=== PATIENT | female | born 1930 | race Caucasian/White ===

== ENCOUNTER → 2016-11-13 | Outpatient (CLI) | payer MEDICARE ==
[~2016-11-13] MED LIST: ASCO100083 PO; ASP325T PO; CALC-52 PO; CALC-69 PO; CHOL10003 PO; CYAN100021 IM; CYAN100053 IM; ESTR1TAB24 PO; ESTR1TAB50 PO; FLC1T PO; HYDR-3583 PO; INUL2TAB2 PO; LEVA1.25 IH; LISI1TAB10 PO; LOVA10TA PO; LSRT50T PO; MULT-608 PO; OMEG1CAP51 PO; OXC5T PO; OXYC10TA85 PO; PEG250PW PO; PHEN1SUP3 PR; POLY17PO23 PO; PROBIOTIC1 EACH PO; PROP65CA PO; SERT100T8 PO; SERT50TA PO; SLMFT1E INH; STR51SU12 PR; TETR15DR82 OU; [UNRECOGNIZED DRUG - CODE] PO
--- OUTSIDE RECORDS SUMMARY | 2016-11-13 12:34 | XMS REPORT | Continuity of Care Document ---
Author Author [facility] Organization [facility] Address Unknown Phone Unavailable Care Team Providers Care Overhead Worker Name Role Phone LIV STONE DO PCP Insurance Providers Payer Name Policy Number Subscriber Name Relationship Wps Medicare [id number] Farooq Rodrigez E 18 Self / Same As Patient Blue Cross Mcr Supp [id number] Farooq Rodrigez E 18 Self / Same As Patient Advance Directives Directive Response Recorded Date/Time Advance Directives Yes 11/30/14 4:15pm Health Care Power of Handstitching Machine Collar Feller Yes 11/30/14 4:15pm Organ Donor No 11/30/14 4:15pm Resuscitation Status Full Code 11/30/14 4:15pm Problems No known problems or medical conditions. Medications Medication Dose Route Sig Days/Qty Instructions Order Date Discontinued Date Status HCTZ/Lisinopril (Zestoretic) 1 Tab PO TWICE A DAY PRN BLOOD PRESSURE 02/02/10 Active Estradiol 1 Mg PO EVERY OTHER DAY 02/02/10 07/23/11 Discontinued Sertraline HCl 50 Mg PO DAILY 02/02/10 11/30/14 Discontinued Propoxyphene HCl (Darvon) 1 Each PO FOUR TIMES DAILY 02/02/10 Discontinued Calcium Citrate/Vitamin D3 2 Each PO DAILY 02/02/10 11/30/14 Discontinued Cholecalciferol 1,000 Unit PO DAILY 02/02/10 08/15/11 Discontinued Starch 1 Ea UT EVERY 6 HOURS PRN 02/02/10 09/15/11 Discontinued Aspirin 650 Mg PO TWICE A DAY 04/10/10 Active Cyanocobalamin (Vitamin B 12 Injecting) 1,000 Mcg IM MONTHLY Active Acetaminophen/Hydrocodone Bitart 1 - 2 Ea PO 4-6 hrs prn 04/22/1023/07 Discontinued Lovastatin (Mevacor) 10 Mg PO DAILY 07/23/11 11/30/14 Discontinued Sinclair-3 Fatty Acids/Fish Oil 1,000 Mg PO BEDTIME 07/23/11 Active Multivitamins 1 Tab PO DAILY 07/23/11 Active Lactobacillus Rhamnosus Gg 1 Tab PO DAILY 07/23/11 Active Inulin/Sorbitol 2 Tab PO DAILY PRN CONSTIPATION 07/23/11 Active Folic Acid 1 Mg PO DAILY 08/08/11 11/30/14 Discontinued Losartan Potassium 50 Mg PO DAILY 30 Days 08/08/11 08/15/11 Discontinued Oxycodone HCl (Oxycodone IR) 20 Mg PO EVERY 4HRS 08/08/11 11/30/14 Discontinued Polyethylene Glycol 1 Ea PO PRN 08/08/11 09/15/11 Discontinued Cholecalciferol 1,000 PO 1200 09/02/11 Active Losartan Potassium 50 Mg PO DAILY 09/02/11 11/27/11 Discontinued Starch 1 Ea UT TWICE A DAY PRN 09/15/11 11/30/14 Discontinued Salmeterol Xinafoate/Fluticasone 0 INH GIVE EVERY 12 HRS ON SCHEDULE 1 PUFF 09/15/11 11/30/14 Discontinued Levalbuterol Hcl 1.25 Mg IH TWICE A DAY 09/15/11 11/27/11 Discontinued Sertraline Hcl 50 Mg PO DAILY 11/30/14 Active Ascorbic Acid 1,000 Mg PO DAILY 11/30/14 Active Magnesium Oxide 500 Mg PO 1200 11/30/14 Active Oxycodone HCl 10 Mg PO TWICE A DAY PRN PAIN 11/30/14 Active Polyethylene Glycol 17 Gm PO 0700 11/30/14 Active Tetrahydrozoline Hcl 2 Drop OU TWICE A DAY PRN DRY EYES/ALLERGIES 10/15 Active Social History Social History Problem Response Recorded Date/Time Recreational Drug Use No 11/30/2014 4:25pm Recent Foreign Travel No 11/30/2014 4:25pm Recent Infectious Disease Exposure No 11/30/2014 4:25pm Hospitalization with Isolation Denies 12/01/2014 10:09pm Sexually Transmitted Disease No 11/30/2014 4:25pm Smoking Status Never a Smoker 11/30/2014 4:16pm Query Response Start Date Stop Date Smoking Status Never a Smoker Hospital Discharge Instructions Patient Instructions Physician Instructions New, Converted or Re-Newed RX: Other (No new Rxes) Goal/Follow Up Appt: Call Dr Stone's office on Thursday to obtain a [facility] appointment on 12/05/14 Return to The [facility] For: Fainting, chest pain Discharge Diet: No Restrictions Activity as Tolerated: Yes Care Plan Goal:: Call Dr Stone's office on Thursday to obtain a [facility] appointment , 12/05/14 Plan of Care Discharge Date 12/01/14 9:00pm Disposition 30 STILL A PATIENT Instructions/Education Provided Syncope (GEN) Prescriptions See Medications Section Functional Status Query Response Date Recorded Patient Orientation Normal For Age December 01, 2014 2:34pm Comprehension Ability Understands Concepts December 01, 2014 9:00am Allergies, Adverse Reactions, Alerts Allergen Type Severity Reaction Status Last Updated amlodipine besylate Allergy Unknown Active 09/15/11 Morphine Allergy Active 07/23/11 atorvastatin ([id number]) Allergy Active 04/10/10 egg ([id number]) Allergy NAUSEA Active 09/15/11 Immunizations Name Given Type Date of Pneumonia Vaccine 10/29/14 Historical Date of Influenza Vaccine 11/30/14 Historical Hepatitis A Yes Historical Hepatitis B Yes Historical Tetanus Booster (TDap) Unknown Historical Vital Signs Acute Vital Signs Vital Response Date/Time Temperature (Fahrenheit) 98.2 degrees F (97.6 - 99.5) Temperature (Calculated Celsius) 36.66338 degrees C (36.4 - 37.5) Temperature Source Tympanic Pulse Rate (adult) 65 bpm (60 - 90) Respiratory Rate 20 bpm (12 - 24) O2 Sat by Pulse Oximetry 92 % (88 - 100) Blood Pressure 157/72 mm Hg Pain Pain Intensity 0 Height (Feet) 5 feet Height (Inches) 7.00 inches Height (Calculated Centimeters) 170.855163 cm Weight (Pounds) 116 pounds Weight (Ounces) 5.0 oz Weight (Calculated Grams) 13129.715 gm Weight (Calculated Kilograms) 52.639034 kilograms Calculated BMI 18.01 Results Laboratory Results Test Name Result Units Flags Reference Collection Date/Time Result Date/ Time Comments White Blood Count 5.2 10^3/uL 4.3-11.0 12/01/2014 6:57am 12/01/2014 7: 13am Red Blood Count 3.89 10^6/uL L 4.35-5.85 12/01/2014 6:57am 12/01/2014 7: 13am Hemoglobin 12.2 G/DL 11.5-16.0 12/01/2014 6:57am 12/01/2014 7:13am Hematocrit 38 % 35-52 12/01/2014 6:57am 12/01/2014 7:13am Mean Corpuscular Volume 97 FL 80-99 12/01/2014 6:57am 12/01/2014 7: 13am Mean Corpuscular Hemoglobin 31 PG 25-34 12/01/2014 6:57am 12/01/2014 7: 13am Mean Corpuscular Hemoglobin Concent 32 G/DL 32-36 12/01/2014 6:57am 10/2014 7:13am Red Cell Distribution Width 14.3 % 10.0-14.5 12/01/2014 6:57am 2014 7:13am Platelet Count 169 10^3/uL 130-400 12/01/2014 6:57am 12/01/2014 7:13am Mean Platelet Volume 11.6 FL H 7.4-10.4 12/01/2014 6:57am 12/01/2014 7: 13am Neutrophils (%) (Auto) 54 % 42-75 12/01/2014 6:57am 12/01/2014 7:13am Lymphocytes (%) (Auto) 30 % 12-44 12/01/2014 6:57am 12/01/2014 7:13am Monocytes (%) (Auto) 13 % H 0-12 12/01/2014 6:57am 12/01/2014 7:13am Eosinophils (%) (Auto) 3 % 0-10 12/01/2014 6:57am 12/01/2014 7:13am Basophils (%) (Auto) 1 % 0-10 12/01/2014 6:57am 12/01/2014 7:13am Neutrophils # (Auto) 2.8 X 10^3 1.8-7.8 12/01/2014 6:57am 12/01/2014 7: 13am Lymphocytes # (Auto) 1.5 X 10^3 1.0-4.0 12/01/2014 6:57am 12/01/2014 7: 13am Monocytes # (Auto) 0.7 X 10^3 0.0-1.0 12/01/2014 6:57am 12/01/2014 7: 13am Eosinophils # (Auto) 0.2 10^3/uL 0.0-0.3 12/01/2014 6:57am 12/01/2014 7 :13am Basophils # (Auto) 0.0 10^3/uL 0.0-0.1 12/01/2014 6:57am 12/01/2014 7: 13am Urine Color YELLOW 11/30/2014 5:25pm 11/30/2014 8:33pm Urine Clarity CLEAR 11/30/2014 5:25pm 11/30/2014 8:33pm Urine pH 7 5-9 11/30/2014 5:25pm 11/30/2014 8:33pm Urine Specific [place] 1.010 * 1.016-1.022 11/30/2014 5:25pm 2014 8:33pm Urine Protein NEGATIVE NEGATIVE 11/30/2014 5:25pm 11/30/2014 8:33pm Urine Glucose (UA) NEGATIVE NEGATIVE 11/30/2014 5:25pm 11/30/2014 8: 33pm Urine RBC (Auto) NEGATIVE NEGATIVE 11/30/2014 5:25pm 11/30/2014 8: 33pm Urine Ketones NEGATIVE NEGATIVE 11/30/2014 5:25pm 11/30/2014 8:33pm Urine Nitrite NEGATIVE NEGATIVE 11/30/2014 5:25pm 11/30/2014 8:33pm Urine Bilirubin NEGATIVE NEGATIVE 11/30/2014 5:25pm 11/30/2014 8: 33pm Urine Urobilinogen NORMAL MG/DL NORMAL 11/30/2014 5:25pm 11/30/2014 8: 33pm Urine Leukocyte Esterase NEGATIVE NEGATIVE 11/30/2014 5:25pm 2014 8:33pm Urine RBC NONE /HPF 11/30/2014 5:25pm 11/30/2014 8:33pm Urine WBC NONE /HPF 11/30/2014 5:25pm 11/30/2014 8:33pm Urine Bacteria NEGATIVE /HPF 11/30/2014 5:25pm 11/30/2014 8:33pm Urine Squamous Epithelial Cells RARE /HPF 11/30/2014 5:25pm 2014 8:33pm Urine Crystals NONE /LPF 11/30/2014 5:25pm 11/30/2014 8:33pm Urine Casts NONE /LPF 11/30/2014 5:25pm 11/30/2014 8:33pm Urine Mucus NEGATIVE /LPF 11/30/2014 5:25pm 11/30/2014 8:33pm Urine Culture Indicated NO 11/30/2014 5:25pm 11/30/2014 8:33pm Sodium Level 145 MMOL/L 135-145 12/01/2014 6:57am 12/01/2014 7:27am Potassium Level 3.9 MMOL/L 3.6-5.0 12/01/2014 6:57am 12/01/2014 7:27am Chloride Level 108 MMOL/L H 98-107 12/01/2014 6:57am 12/01/2014 7:27am Carbon Dioxide Level 27 MMOL/L 21-32 12/01/2014 6:57am 12/01/2014 7: 27am Blood Urea Nitrogen 27 MG/DL H 7-18 12/01/2014 6:57am 12/01/2014 7:27am Creatinine 1.05 MG/DL 0.60-1.30 12/01/2014 6:57am 12/01/2014 7:27am BUN/Creatinine Ratio 26 12/01/2014 6:57am 12/01/2014 7:27am Estimat Glomerular Filtration Rate 50 12/01/2014 6:57am 12/01/2014 7:27am GFR INTERPRETIVE DATA UNITS FOR ESTIMATED GFR (eGFR): mL/min/1.73 M2 REFERENCE RANGE FOR ESTIMATED GFR (eGFR) eGFR NORMAL eGFR >60 MODERATELY DECREASED eGFR 30-59 SEVERLY DECREASED eGFR 15-29 KIDNEY FAILURE <15 (OR DIALYSIS) Glucose Level 96 MG/DL 70-105 12/01/2014 6:57am 12/01/2014 7:27am Calcium Level 10.2 MG/DL H 8.5-10.1 12/01/2014 6:57am 12/01/2014 7:27am Magnesium Level 2.1 MG/DL 1.8-2.4 11/30/2014 4:11pm 11/30/2014 5:00pm Total Bilirubin 0.7 MG/DL 0.1-1.0 12/01/2014 6:57am 12/01/2014 7:27am Alkaline Phosphatase 61 U/L 40-136 12/01/2014 6:57am 12/01/2014 7:27am Aspartate Amino Transf (AST/SGOT) 40 U/L H 5-34 12/01/2014 6:57am 2014 7:27am Alanine Aminotransferase (ALT/SGPT) 22 U/L 0-55 12/01/2014 6:57am 12/01 7:27am Total Creatine Kinase 398 U/L H 29-168 11/30/2014 4:11pm 11/30/2014 5: 28pm Creatine Kinase MB 7.3 NG/ML CH <6.6 11/30/2014 4:11pm 11/30/2014 5:00pm RESULTS CALLED TO [facility] AT 1700. RESULTS READ BACK: YES. Troponin I < 0.30 NG/ML <0.30 11/30/2014 4:11pm 11/30/2014 5:00pm Total Protein 6.5 G/DL 6.4-8.2 12/01/2014 6:57am 12/01/2014 7:27am Albumin 3.6 G/DL 3.2-4.5 12/01/2014 6:57am 12/01/2014 7:27am Procedures Procedure Status Date Provider(s) Tracing only of electrocardiogram completed 11/30/14 LIV STONE DO Encounters Encounter Location Date/Time Discharged Inpatient [facility] 11/30/14 2:50pm
--- NOTE | 2016-11-17 00:17 | ECHOCARDIOGRAPHY REPORT ---
PROCEDURE PHYSICIAN: COLBY CENTENO DATE OF PROCEDURE: 11/13/2016 TWO DIMENSIONAL ECHOCARDIOGRAM REPORT PRIMARY PHYSICIAN: OTHER PHYSICIAN: REFERRING PHYSICIAN: Dr. Nitza Keith ORDERING PHYSICIAN: INDICATION FOR THE PROCEDURE: Cardiac murmur. MEASUREMENTS DERIVED VALUES LV DIAMETER (LAX) NORMALS NORMALS Diastolic 4.4 (3.6-5.2) Eject. Fract. 60% (60%+/-6%) Systolic (2.3-3.9) Diastolic Vol. % Shortening (0.22-0.42) Systolic Vol. Aortic Root IVS THICKNESS Diastolic 1.1 (0.6-1.1) LVPW THICKNESS Diastolic 1.1 (0.6-1.1) LA DIAMETER Systolic 4.3 (2.1-3.7) FINDINGS: 1. Technical quality is good. 2. The left ventricle is normal in size with normal contractility. Systolic function appeared to be normal. Estimated ejection fraction 60%. Diastolic dysfunction is suggested by Doppler. 3. The left atrium is dilated. No clot or thrombus were seen within the left atrium. 4. The right atrium is prominent. Right ventricle is normal in size. No clot or thrombus were seen within the right side. 5. Mitral valve is normal in morphology with mild mitral regurgitation noted by color Doppler flow. No mitral valve prolapse. No mitral valve stenosis. 6. Aortic valve is trileaflet with normal opening and closing pattern. No significant aortic stenosis or regurgitation was seen. 7. Tricuspid valve is normal in morphology with moderate tricuspid regurgitation noted by color Doppler flow. Doppler across tricuspid valve estimated pulmonary artery pressure 37+ right atrial pressure. 8. Pulmonic valve is functioning normally. 9. No pericardial effusion. IN CONCLUSION: 1. Normal left ventricular size and systolic function. Estimated ejection fraction 60%. Diastolic dysfunction is suggested by Doppler. 2. Dilated left atrium. 3. Dilated right atrium with prominent right heart chambers with mild to moderate pulmonary hypertension, estimated pulmonary artery pressure of 45 mmHg. 4. Moderate tricuspid regurgitation, mild mitral regurgitation. Job ID: [id number] Dictated Date: 11/16/2016 12:30:03 Supervisor Denture Department Date: 11/17/2016 00:13:44 / [email or web address]
== END ==
LOC: CARD 12:29
PROVIDERS: ATTEND Internal Medicine
DX: R01.1 Cardiac murmur, unspecified (principal)
CPT/HCPCS: 93306

== ENCOUNTER 2016-12-19 19:46 | Outpatient (CLI) | payer MEDICARE | END 2016-12-20 06:50 | disposition home or self-care (01) | LOC: SLEEP 19:46 | PROVIDERS: ATTEND Nurse Practitioner Family | DX: G47.33 Obstructive sleep apnea (adult) (pediatric) (principal); I10 Essential (primary) hypertension | CPT/HCPCS: 95811 ==

== ENCOUNTER → 2018-04-15 | Outpatient (CLI) | payer MEDICARE | LOC: CARD 11:34 | PROVIDERS: ATTEND Internal Medicine Cardiovascular Disease | DX: I25.10 Atherosclerotic heart disease of native coronary artery without angina pectoris (principal); R06.09 Other forms of dyspnea; I10 Essential (primary) hypertension; E78.2 Mixed hyperlipidemia | CPT/HCPCS: 93225; 93226 ==

== ENCOUNTER → 2019-02-03 | Outpatient (CLI) | payer MEDICARE ==
[~2019-02-03] VITALS: Ht 170.2 cm; Wt 56.7 kg
--- NOTE | 2019-02-03 20:53 | Diagnostic Imaging Report ---
INDICATION: Right thyroid nodule. Sonographic guidance was provided for Dr. Pierce for right thyroid nodule FNA. 3 passes were made into the partially calcified nodule in the right thyroid lobe. IMPRESSION: Sonographic guidance for right thyroid nodule FNA by Dr. Pierce. Dictated by: Dictated on workstation # [id number]
== END ==
LOC: RAD 10:58
PROVIDERS: ATTEND Otolaryngology Otolaryngology/Facial Plastic Surgery
DX: E04.1 Nontoxic single thyroid nodule (principal)
CPT/HCPCS: 88173; 88305

== ENCOUNTER 2019-03-10 08:50 | Inpatient (IN) | payer MEDICARE ==
[~2019-03-10] VITALS: Ht 170.2 cm; Wt 51.3 kg
--- NOTE | 2019-03-10 10:10 | NUR ---
FAROOQ RODRIGEZ Sher admitted to room 230-1, with an admitting diagnosis of CONCUSSION WITH LOSS OF CONSCIOUSNESS, on 03/10/19 from [facility], accompanied by SON-SAFIA.FAROOQ RODRIGEZ introduced to surroundings, call light, bed controls, phone, TV, temperature control, lights, meal times, smoking policy, visitor policy, side rail policy, bathrooms and showers. Patient Rights given to patient in the handbook. FAROOQ RODRIGEZ verbalizes understanding that [facility] is not responsible for the loss or damage to any personal effects or valuables that are kept in the patients posession during their hospitalization. The Patient'S Care Plans were discussed with the PATIENT WELL Discharge Planning. FAROOQ RODRIGEZ verbalizes understanding of Interdisciplinary Patient Education. Patient and/or family were informed about the Rapid Response Team and its purpose.
[2019-03-10 10:30] VITALS: BP 132/74
[2019-03-10] MEDS ORDERED: SERT100T8 PO (11:30)
[2019-03-10] MEDS ORDERED: CHOL10007 PO (11:30)
[2019-03-10] MEDS ORDERED: OXYC10TA7 PO (11:30)
[2019-03-10] MEDS ORDERED: LISI1TAB10 PO (11:30)
[2019-03-10] MEDS ORDERED: CNC1KV INJ (11:30)
--- NOTE | 2019-03-10 11:38 | NUR ---
UPDATED MED REC WITH DISCHARGE INSTRUCTIONS FROM [facility]. FUROSEMIDE WAS ORDERED TO STOP HOWEVER IT DOES NOT LOOK LIKE IT HAD BEEN FILLED RECENTLY ACCORDING TO THE EXT MED HX. THE FOLLOWING MEDICATIONS WERE ORDERED TO BE CONTINUED BUT WERE ORDERED DIFFERENTLY THAN THEY WERE FILLED ON THE EXT MED HX. I UPDATED THE MED REC WITH WHAT THE PATIENT HAD BEEN PRESCRIBED ACCORDING TO THE RECORDS FROM [facility]. 02-02-19 VITAMIN B12 INJ 2000MCG WEEKLY #8 FOR 30 DAYS (WAS ORDERED 1000MCG WEEKLY) 19 OXYCODONE 10MG 1-2 Q6H PRN #150 (WAS CONTINUED OXYCONTIN 10MG BID) NO CHANGES WILL BE MADE AT A LATER DATE SINCE THESE CONTINUED MEDICATIONS WERE ENTERED ON THE MED REC THEY WERE FILLED AT THE PHARMACY, THE DISCONTINUED MEDICATION FOR LASIX HAS NOT BEEN FILLED RECENTLY SO I WILL NOT ADD IT BACK TO THE MED REC.
--- NOTE | 2019-03-10 11:50 | Physical Therapy Evaluation ---
PT Evaluation-General Medical Diagnosis Admission Date Mar 10, 2019 at 10:19 Medical Diagnosis: concussion with loss of consiousness Onset Date: Mar 08, 2019 Therapy Diagnosis Therapy Diagnosis: impaired mobility, strength, endurance, balance Height/Weight Height (Feet): 5 Height (Inches): 7.00 Weight (Pounds): 113 Weight (Ounces): 0.9 Precautions Precautions/Isolations: Fall Prevention, Standard Precautions Referral Physician: Nitza Keith DO Reason for Referral: Evaluation/Treatment Medical History Pertinent Medical History: COPD, HTN, NE, Rheumatic Heart Disease Additional Medical History hyperlipidemia, anemia, diverticulitis Reviewed History: Yes Social History Home: Single Level Current Living Status: Alone Entry Into Home: Stairs With Railing PT Steps Into Home: 4 Prior/Core FIM Prior Level of Function Therapy Code Descriptions/Definitions Functional [place] Measure: 0=Not Assessed/NA 4=Minimal Assistance 1=Total Assistance 5=Supervision or Setup 2=Maximal Assistance 6=Modified [place] 3=Moderate Assistance 7=Complete [place] Therapy Quality Codes: 6 Independent with activity with or without an assistive device 5 Patient requires set up or clean up by helper. Patient completes activity by themselves 4 Supervision or touching assist (CGA). [place] provide cues , steadying assist 3 The helper provides less than half the effort to complete the activity 2 The helper provides more than half the effort to complete the activity 1 Dependent. The helper does all the effort to complete an activity 7 Patient refused to complete or attempt activity 9 The patient did not perform the activity before the current illness or injury 88 Not attempted due to Medical conditions or safety concerns Functional Abilities and Goals: Independent: Patient completed the activities by him/herself, with or without an assistive device, with no assistance from a helper. Needed Some Help: Patient needed partial assistance from another person to complete activities. Dependent: A helper completed the activities for the patient. Unknown: Not Applicable: Bed Mobility: 6 Transfers (B,C,W/C) (FIM): 6 Gait: 6 Stairs: 6 Indoor Mobility (Ambulation): Independent Stairs: Independent Patient states she was using a rolling walker in the home but no AD outside of the home. PT Evaluation-Current Subjective Patient in recliner pre tx, agrees to PT, has 8/10 low back pain and 2/10 pain in her knees. Pt/Family Goals "to not fall at home" Objective Patient Orientation: Person, Place, Situation ROM/Strength ROM Lower Extremities WNL Strenght Lower Extremities LLE (hip flexion 3+/5, knee flexion 4-/5, knee extension 4-/5, dorsiflexion 4/5), RLE (hip flexion 3+/5, knee flexion 4/5, knee extension 4/5, dorsiflexion 4+/5) Neuromuscular (Tone, Coordination, Reflexes) NT Sensory Vision: Wears Glasses Hearing: Functional Sensation Right Lower Extremit: Intact Sensation Left Lower Extremity: Intact Transfers Therapy Code Descriptions/Definitions Functional [place] Measure: 0=Not Assessed/NA 4=Minimal Assistance 1=Total Assistance 5=Supervision or Setup 2=Maximal Assistance 6=Modified [place] 3=Moderate Assistance 7=Complete [place] Therapy Quality Codes: 6 Independent with activity with or without an assistive device 5 Patient requires set up or clean up by helper. Patient completes activity by themselves 4 Supervision or touching assist (CGA). [place] provide cues , steadying assist 3 The helper provides less than half the effort to complete the activity 2 The helper provides more than half the effort to complete the activity 1 Dependent. The helper does all the effort to complete an activity 7 Patient refused to complete or attempt activity 9 The patient did not perform the activity before the current illness or injury 88 Not attempted due to Medical conditions or safety concerns Transfers (B, C, W/C) (FIM): 4 Scootin Rollin Roll Left to Right (QC): 6 Supine to/from Sit: 6 Sit to/from Stand: 4 Sit to Lying (QC): 6 Lying to Sitting/Side of Bed(Q: 6 Sit to Stand (QC): 4 Chair/Lic-ay-Jsqer Xfer(QC): 4 Car Transfer (QC): 4 Patient performs bed mobility with mod I, supine <-> sit with mod I, sit <-> stand with CGA, transfers with CGA, car transfer CGA. Patient tends to lean jus t slightly backwards when standing or ambulating. Occasional cues for hand placement or direction. Gait Does the Patient Walk?: Yes Mode of Locomotion: Walk Anticipated Mode of Locomotion: Walk Gait (FIM): 4 Walk 10 feet (QC): 4 Walk 50 ft with 2 Turns(QC): 4 Walk 150 ft (QC): 4 Walking 10ft/uneven surface-QC: 4 Distance: 150', 120' Gait Level of Assist: 4 Gait Persons Needed: 1 Gait Assistive Device: FWW Comments/Gait Description Patient can ambulate 150' with a rolling walker with CGA (including 50' with at least 2 turns of 90 degrees and 10' over an uneven surface). Patient leans just slightly backwards and needs CGA when turning but most of the time is SBA. Stairs Stairs (FIM): 2 #of Steps: 4 Level of Assist: 4 1 Step (curb) (QC): 4 4 Steps (QC): 4 Patient can go up and down 4 steps using 2 handrails with CGA. Balance Sitting Static: Normal Sitting Dynamic: Normal Standing Static: Fair Standing Dynamic: Poor Special Test Comments Patient scored 21/28 on the Tinetti Assessment Tool indicating that she needs to use an AD. Patient mentioned that she has impaired circulation in her feet which could contribute to her balance impairments. Assessment/Needs Patient has impaired mobility, strength, endurance, balance. She has impaired balance and scored 21/28 on the Tinetti and needs assist when she is out of the chair for now. Rehab Potential: Fair PT Short Term Goals Short Term Goals Time Frame: Mar 17, 2019 Transfers (B,C,W/C) (FIM): 6 Gait (FIM): 5 Gait Distance Comment: 200' Gait Level of Assist: 5 Gait Assistive Device: FWW PT Hardness Tester Goals Mcfp Goals PT Mcfp Goals Time Frame: Mar 31, 2019 Transfers (B,C,W/C) (FIM): 6 Sit to Lying (QC): 6 Lying-Sitting on Side/Bed(QC): 6 Sit to Stand (QC): 6 Rollin Roll Left to Right (QC): 6 Chair/Zny-eo-Lexlk Xfer(QC): 6 Car Transfer (QC): 6 Gait (FIM): 6 Distance: 300' Walk 10 feet (QC): 6 Walk 10ft-Uneven Surface(QC): 6 Walk 50ft with 2 Turns (QC): 6 Walk 150 ft (QC): 6 Gait Level of Assist: 6 Gait Assistive Device: FWW Stairs (FIM): 4 # of Steps: 12 1 Step (curb) (QC): 4 4 Steps (QC): 4 12 Steps (QC): 4 Stairs Level Of Assist: 4 PT Plan Problem List Problem List: Activity Tolerance, Functional Strength, Safety, Balance, Gait, Transfer, Bed Mobility Treatment/Plan Treatment Plan: Continue Plan of Care Treatment Plan: Bed Mobility, Education, Functional Activity [place], Functional Strength, Group Therapy, Gait, Safety, Therapeutic Exercise, Transfers Treatment Duration: Mar 31, 2019 Frequency: At least 5 of 7 days/Wk (IRF) Estimated Hrs Per Day: 1.5 hours per day Patient and/or Family Agrees t: Yes Safety Risks/Education Patient Education: Gait Training, Transfer Techniques, Steps, Correct Positioning, Safety Issues Teaching Recipient: Patient Teaching Methods: Demonstration, Discussion Response to Teaching: Reinforcement Needed Discharge Recommendations Plan Patient will perform bed mobility and transfer training, balance and endurance training, functional strengthening, stair training, gait training, and education, to improve functional mobility and independence at home. Therapy D/C Recommendations: Assisted Living, Home w/ Family Support Time/GCodes Time In: 1100 Time Out: 1145 Total Billed Treatment Time: 45 Total Billed Treatment 1 visit EVM 30' GT 15' CLARISSE SIMMS PT Mar 10, 2019 11:50
[2019-03-10] MEDS ORDERED: NON-FORMULARY MEDICATION 1 EA EA (Oxycodone HCl 10 MG) PO PRN (12:45)
--- NOTE | 2019-03-10 15:54 | Physical Therapy Daily Note ---
PT Daily Note-Current Subjective Patient is very agreeable to participate with PT. No c/o. Mental Status Patient Orientation: Normal For Age Transfers Therapy Code Descriptions/Definitions Functional [place] Measure: 0=Not Assessed/NA 4=Minimal Assistance 1=Total Assistance 5=Supervision or Setup 2=Maximal Assistance 6=Modified [place] 3=Moderate Assistance 7=Complete [place] Therapy Quality Codes: 6 Independent with activity with or without an assistive device 5 Patient requires set up or clean up by helper. Patient completes activity by themselves 4 Supervision or touching assist (CGA). [place] provide cues , steadying assist 3 The helper provides less than half the effort to complete the activity 2 The helper provides more than half the effort to complete the activity 1 Dependent. The helper does all the effort to complete an activity 7 Patient refused to complete or attempt activity 9 The patient did not perform the activity before the current illness or injury 88 Not attempted due to Medical conditions or safety concerns Transfers (B, C, W/C) (FIM): 5 Scootin Sit to/from Stand: 5 Sit to Stand (QC): 5 Car Transfer (QC): 6 Gait Training Does the Patient Walk?: Yes Gait (FIM): 5 Distance (FIM): 3=150 ft Distance: 200' x 2 Walk 10 feet (QC): 5 Walk 50 ft with 2 Turns(QC): 5 Walk 150 ft (QC): 5 Gait Level of Assist: 5 Gait Assistive Device: FWW slow, safe and functional Exercises Seated Therapy Exercises: Ankle pumps, Long arc quads Seated Reps: 15 Standing: Hip Abduction, Marching Standing Reps: 15 NuStep Minutes: 15 NuStep Workload: 3 (to increase functional strength and mobility) Assessment Patient tolerated treatment well and is highly motivated with progress. PT to increase activity as tolerated by patient. PT Short Term Goals Short Term Goals Time Frame: Mar 17, 2019 Transfers (B,C,W/C) (FIM): 6 Gait (FIM): 5 Gait Distance Comment: 200' Gait Level of Assist: 5 Gait Assistive Device: FWW PT Warehouse Manager Goals Warehouse Manager Goals PT Prison Goals Time Frame: Mar 31, 2019 Transfers (B,C,W/C) (FIM): 6 Sit to Lying (QC): 6 Lying-Sitting on Side/Bed(QC): 6 Sit to Stand (QC): 6 Rollin Roll Left to Right (QC): 6 Chair/Vrb-ro-Tkijv Xfer(QC): 6 Car Transfer (QC): 6 Gait (FIM): 6 Distance: 300' Walk 10 feet (QC): 6 Walk 10ft-Uneven Surface(QC): 6 Walk 50ft with 2 Turns (QC): 6 Walk 150 ft (QC): 6 Gait Level of Assist: 6 Gait Assistive Device: FWW Stairs (FIM): 4 # of Steps: 12 1 Step (curb) (QC): 4 4 Steps (QC): 4 12 Steps (QC): 4 Stairs Level Of Assist: 4 PT Plan Treatment/Plan Treatment Plan: Continue Plan of Care Treatment Plan: Bed Mobility, Education, Functional Activity [place], Functional Strength, Group Therapy, Gait, Safety, Therapeutic Exercise, Transfers Treatment Duration: Mar 31, 2019 Frequency: At least 5 of 7 days/Wk (IRF) Estimated Hrs Per Day: 1.5 hours per day Patient and/or Family Agrees t: Yes Time/GCodes Time In: 1505 Time Out: 1550 Total Billed Treatment Time: 45 Total Billed Treatment 1 visit EX x 2 35 min GT 10 min FATUMA SABILLON PT Mar 10, 2019 15:54
--- NOTE | 2019-03-10 15:57 | Occupational Therapy Eval ---
OT Evaluation-General/PLF Medical Diagnosis Admission Date Mar 10, 2019 at 10:19 Medical Diagnosis: concussion with loss of consiousness Onset Date: Mar 08, 2019 Therapy Diagnosis Therapy Diagnosis: Weakness Height/Weight Height (Feet): 5 Height (Inches): 7.00 Weight (Pounds): 113 Weight (Ounces): 0.9 Precautions Precautions/Isolations: Fall Prevention, Standard Precautions Weight Bear Status Weight Bearing Restriction: Weight Bearing/Tolerated Referral Physician: Nitza Keith DO Referral Reason: Activity Tolerance, Self Care, Evaluation/Treatment, Strengthening/ROM Medical History Pertinent Medical History: COPD, HTN, [place], Rheumatic Heart Disease Current History Pt. fell at home. Struck head and had laceration with loss of consciousness. P t. reports that she feels weak overall and does not feel that her memory is back. Reviewed History: Yes Social History Home: Single Level Current Living Status: Alone Entry Into Home: Stairs With Railing Steps Into Home: 4 ADL-Prior Level of Function Therapy Code Descriptions/Definitions Functional [place] Measure: 0=Not Assessed/NA 4=Minimal Assistance 1=Total Assistance 5=Supervision or Setup 2=Maximal Assistance 6=Modified [place] 3=Moderate Assistance 7=Complete [place] Therapy Quality Codes: 6 Independent with activity with or without an assistive device 5 Patient requires set up or clean up by helper. Patient completes activity by themselves 4 Supervision or touching assist (CGA). [place] provide cues , steadying assist 3 The helper provides less than half the effort to complete the activity 2 The helper provides more than half the effort to complete the activity 1 Dependent. The helper does all the effort to complete an activity 7 Patient refused to complete or attempt activity 9 The patient did not perform the activity before the current illness or injury 88 Not attempted due to Medical conditions or safety concerns Functional Abilities and Goals: Independent: Patient completed the activities by him/herself, with or without an assistive device, with no assistance from a helper. Needed Some Help: Patient needed partial assistance from another person to complete activities. Dependent: A helper completed the activities for the patient. Unknown: Not Applicable: ADL PLOF Comments Pt. states that she is typically independent with all ADLs. She does have a cleaning lady and receives meals on wheels. Self Care: Independent Functional Cognition: Independent DME/Equipment: Bath Chair, Shower DME/Equipment Comments Pt. has a rolling walker but does not use it all the time. Drive Self: Yes OT Current Status Subjective Pt. does not report pain level. Appearance Pt. is alert and oriented and remembers this therapist from previous stay. Mental Status/Objective Patient Orientation: Person, Place, Time, Situation Current Glasses/Contacts: Yes Upper Extremity ROM WFL Pt. reports that her right shoulder is weaker than left. Overall, strength is 4/5. ADL-Treatment Eating (FIM): 6 Eating (QC): 6 Lower Body Dressing (FIM): 5 (SBA to doff/don slipper socks and shoes.) Lower Body Dressing (QC): 4 On/Off Footwear (QC): 4 Toileting (FIM): 5 (SBA to complete all toileting tasks.) Toileting Hygiene (QC): 4 Transfers (B, C, W/C) (FIM): 5 (SBA to ambulate with walker to and from therapy gym, bathroom.) Toilet/Commode Transfer (FIM): 4 Toilet Transfer (QC): 4 Other Treatments Pt. declines showering as she showered last night. Pt. agrees to work with OT. Ambulated to therapy gym and completed assessment. Pt. then completed arm bike x 10 minutes at min resistance to increase overall strength. Donned 1 lb. wrist weights to complete fine motor reaching task while completing cognitive task/memory. Pt. reports that she feels that since she fell, she has had difficulty remembering things. Pt. worked on trivia of known facts. Tolerated this well. All needs met back in room after full assessment. Pt. completed toileting task in room with SBA. Pt. able to clean self with no difficulties. Education OT Patient Education: Correct positioning, Exercise program, Modified ADL techniques, Progress toward Goal/Update tx plan, Purpose of tx/functional activities, Reviewed precautions, Rehab process, Transfer techniques Teaching Recipient: Patient Teaching Methods: Demonstration, Discussion Response to Teaching: Verbalize Understanding, Return Demonstration OT Short Term Goals Short Term Goals Transfers (B,C,W/C) (FIM): 6 1=Demonstrate adherence to instructed precautions during ADL tasks. 2=Patient will verbalize/demonstrate understanding of assistive devices/modifications for ADL. 3=Patient will improve strength/tolerance for activity to enable patient to perform ADL's. OT Long-Term Goals Long-Term Goals Time Frame: Mar 24, 2019 Eating (FIM): 6 Eating (QC): 6 Groomin Oral Hygiene (QC): 6 Bathing(FIM): 5 Shower/Bathe Self (QC): 5 Upper Body Dressing(FIM): 6 Upper Body Dressing (QC): 6 Lower Body Dressing(FIM): 6 Lower Body Dressing (QC): 6 On/Off Footwear (QC): 6 Toileting(FIM): 6 Toileting Hygiene (QC): 6 Transfers (B,C,W/C) (FIM): 6 Toilet/Commode Transfer(FIM): 6 Toilet/Commode Transfer (QC): 6 Shower Transfer(FIM): 5 1=Demonstrate adherence to instructed precautions during ADL tasks. 2=Patient will verbalize/demonstrate understanding of assistive devices/modifications for ADL. 3=Patient will improve strength/tolerance for activity to enable patient to perform ADL's. OT Education/Plan Problem List/Assessment Assessment: Decreased Activ Tolerance, Impaired I ADL's, Impaired Self-Care Skills Discharge Recommendations Plan/Recommendations: Continue POC Therapy D/C Recommendations: Home w/ Family Support, Occupational Therapy Home Care Treatment Plan/Plan of Care Treatment,Training & Education: Yes Patient would benefit from OT for education, treatment and training to promote independence in ADL's, mobility, safety and/or upper extremity function for ADL's. Plan of Care: ADL Retraining, Functional Mobility, Group Exercise/Act as Ind, UE Funct Exercise/Act Treatment Duration: Mar 24, 2019 Frequency: At least 5 of 7 days/Wk (IRF) Estimated Hrs Per Day: 1.5 hours per day Agreement: Yes Rehab Potential: Good Time/GCodes Start Time: 11:45 Stop Time: 14:45 Total Time Billed (hr/min): 90 Billed Treatment Time 5025-9313 1, EVL x 15minutes [id number] 1, ADL x 30minutes, Ex x 15minutes, FA x 30minutes WILFREDO ORTEGA OT Mar 10, 2019 15:57
[2019-03-10 16:11] VITALS: BP 148/77
[2019-03-10] MEDS: lisINopril 20 MG (PRINIVIL) TABLET PO SCH (19:53)
[2019-03-10] MEDS: HYDROCHLOROTHIAZIDE 25 MG (HCTZ) TAB PO SCH (19:53)
[2019-03-10] MEDS: SERTRALINE 100 MG (ZOLOFT) TAB PO SCH (19:53)
[2019-03-10] MEDS ORDERED: NON-FORMULARY MEDICATION 1 EA EA (Lisinopril/Hydrochlorothiazide (Lisinopril-Hctz 20-25 mg PO SCH (21:00)
[2019-03-11 05:49] LABS: BASOPHILS % (AUTO) 0 % (0-10); EOSINOPHILS # (AUTO) 0.2 10^3/uL (0.0-0.3); EOSINOPHILS % (AUTO) 3 % (0-10); HEMATOCRIT 31 % (35-52); HEMOGLOBIN 10.2 G/DL (11.5-16.0); LYMPHOCYTES # (AUTO) 1.8 X 10^3 (1.0-4.0); LYMPHOCYTES % (AUTO) 29 % (12-44); MEAN CORPUSCULAR HEMOGLOBIN 32 PG (25-34); MEAN CORPUSCULAR HGB CONC 33 G/DL (32-36); MEAN CORPUSCULAR VOLUME 98 FL (80-99); MEAN PLATELET VOLUME 10.8 FL (7.4-10.4); MONOCYTES # (AUTO) 0.8 X 10^3 (0.0-1.0); MONOCYTES % (AUTO) 13 % (0-12); NEUTROPHILS # (AUTO) 3.4 X 10^3 (1.8-7.8); NEUTROPHILS % (AUTO) 54 % (42-75); PLATELET COUNT 155 10^3/uL (130-400); RED CELL DISTRIBUTION WIDTH 13.5 % (10.0-14.5); WHITE BLOOD COUNT 6.2 10^3/uL (4.3-11.0)
[2019-03-11 06:00] VITALS: BP 169/71
[2019-03-11 06:04] LABS: ALBUMIN 3.3 GM/DL (3.2-4.5); BILIRUBIN,TOTAL 0.4 MG/DL (0.1-1.0); CALCIUM 9.3 MG/DL (8.5-10.1); CREATININE SERUM 0.98 MG/DL (0.60-1.30); POTASSIUM 3.3 MMOL/L (3.6-5.0); TOTAL PROTEIN 5.8 GM/DL (6.4-8.2)
--- NOTE | 2019-03-11 06:43 | NUR ---
Pt reports she is allergic only to raw eggs, she requests for this allergy to be remove. Dr Keith notified, new order to remove the egg allergy from the pt's list of allergies.
[2019-03-11] MEDS ORDERED: POLYETHYLENE GLYCOL 17 GM (MIRALAX) PACK ONE (08:09)
[2019-03-11] MEDS ORDERED: POLYETHYLENE GLYCOL 17 GM (MIRALAX) PACK PO NR (08:15)
[2019-03-11] MEDS: SERTRALINE 100 MG (ZOLOFT) TAB PO SCH ×2 (08:17→20:55)
[2019-03-11] MEDS: lisINopril 20 MG (PRINIVIL) TABLET PO SCH ×2 (08:17→20:55)
[2019-03-11] MEDS: HYDROCHLOROTHIAZIDE 25 MG (HCTZ) TAB PO SCH ×2 (08:17→20:55)
[2019-03-11] MEDS: VITAMIN D3 1,000 UNITS (CHOLECALCIFEROL) TABLET PO SCH (08:18)
--- NOTE | 2019-03-11 08:40 | PM&R H&P / Post Admit Assess ---
History of Present Illness HPI/Chief Complaint CC: Fall with scalp laceration and loss of consciousness HPI: This is an 88yoWF clinic patient of mine for the past 15.5 years who has a h/o HTN labile and malignant type, severe scoliosis requiring narcotic pain meds and renal insufficiency who presents to IRF after [place] [facility] [place] house on Thursday morning. She has no recollection of the fall and she did experience LOC and suffered a significant scalp laceration which required suturing in ER and moderate to severe blood loss resulting in acute anemia of hgb 10. Patient was assumed to have become orthostatic and resulted in the fall. Her cleaning lady happened to be at the house and heard the fall and came to her immediately after it occurred and her son was called and EMS was notified. All xrays and images were without fractures. She lives at home alone with family checking in twice daily and she was independent of ADL's and ambulation with walker at times. She will return to her home with additional family support in addition to medical alert system addition. She had become more short of breath with activity since her fall and has not been using her CPAP. Source: patient Exam Limitations: no limitations Date Seen 03/11/19 Time Seen by a Provider: 09:00 Attending Physician Nitza Keith DO PCP Nitza Keith DO Referring Physician Date of Admission Mar 10, 2019 at 10:19 Home Medications & Allergies Home Medications Reviewed patient Home Medication Reconciliation performed by pharmacy medication reconciliations weed science research technician and/or nursing. Patients Allergies have been reviewed. 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 ) Alcohol Use: Denies Use Recreational Drug Use: No Smoking Status: Never a Smoker Physical Abuse Screen: No Sexual Abuse: No Recent Foreign Travel: No Contact w/other who traveled: No Recent Hopitalizations: Yes (came from [facility] s/p fall 03/08/19) Recent Infectious Disease Expo: No Immunizations Up To Date Tetanus Booster (TDap): Unknown Pediatric: Yes Date of Pneumonia Vaccine: Oct 29, 2014 Date of Influenza Vaccine: Nov 30, 2014 Seasonal Allergies Seasonal Allergies: No Past Medical History Surgeries: Abdominal, Adenoidectomy, Eye Surgery, Hysterectomy, Lobectomy, Oophorectomy, Orthopedic, Tonsillectomy Respiratory: Asthma, COPD, Pneumonia, Sleep Apnea Currently Using CPAP: Yes Currently Using BIPAP: No Cardiac: Chronic Edema/Swelling, Heart Attack, High Cholesterol, Hypertension, Rheumatic Fever, Valvular Heart Disease Reproductive: No Sexually Transmitted Disease: No HIV/AIDS: No Female Reproductive Disorders: Denies Genitourinary: Renal Failure Gastrointestinal: Gastroesophageal Reflux, Diverticulosis Musculoskeletal: Scoliosis, Chronic Back Pain Psychosocial: Anxiety, Depression History of Blood Disorders: No Adverse Reaction to Blood Vu: No Family History Patient reports no known family medical history. Review of Systems Constitutional: dizziness, malaise, weakness EENTM: no symptoms reported Respiratory: no symptoms reported Cardiovascular: no symptoms reported Gastrointestinal: no symptoms reported Genitourinary: no symptoms reported Musculoskeletal: no symptoms reported Skin: no symptoms reported Psychiatric/Neurological: Anxiety, Depressed, Other (headache) All Other Systems Reviewed Negative Unless Noted: Yes Physical Exam Exam Vital Signs Vital Signs Date Time Temp Pulse Resp B/P (MAP) Pulse Ox O2 Delivery O2 Flow Rate FiO2 03/11/19 06:00 97.5 72 18 169/71 (103) 92 Room Air Capillary Refill : General Appearance: No Apparent Distress, WD/WN, Chronically ill, Thin HEENT: PERRL/EOMI, Normal ENT Inspection, Pharynx Normal, Moist Mucous Membranes Neck: Full Range of Motion, Normal Inspection, Non Tender, Supple Respiratory: Chest Non Tender, Lungs Clear, Normal Breath Sounds, No Accessory Muscle Use, No Respiratory Distress Cardiovascular: Regular Rate, Rhythm, No Edema, No Gallop, No JVD, No Murmur Gastrointestinal: Normal Bowel Sounds, No Organomegaly, No Pulsatile Mass, Non Tender, Soft Back: Normal Inspection, No CVA Tenderness, No Vertebral Tenderness Extremity: Normal Capillary Refill, Normal Inspection, Normal Range of Motion, Non Tender, No Calf Tenderness, No Pedal Edema Neurologic/Psychiatric: Alert, Oriented x3, No Motor/Sensory Deficits, Normal Mood/Affect, tipple worker II-XII Norm as Tested, Motor Weakness (generalized weakness legs) Skin: Normal Color, Warm/Dry Lymphatic: No Adenopathy Results Results/Procedures Labs Laboratory Tests 03/11/19 04:55 Patient resulted labs reviewed. Assessment/Plan Assessment and Plan Assess & Plan/Chief Complaint Assessment: Fall with acute LOC Scalp laceration Anemia from acute blood loss HTN labile and malignant type CRI Hypokalemia HLP ANA MARIA Asthma Plan: Home meds IRF protocol HTN monitoring Fall prevention (1) Loss of consciousness (2) Hypertension (3) History of rheumatic fever as a child (4) COPD (chronic obstructive pulmonary disease) (5) Asthma (6) ANA MARIA on CPAP (7) Renal insufficiency (8) Hypokalemia (9) Hyperlipidemia (10) B12 deficiency (11) Narcotic dependence (12) Scoliosis (13) Knee pain (14) Diverticula of colon (15) History of GI bleed (16) Fall (17) Scalp laceration (18) Anemia due to acute blood loss Post Admission Physician Asses Date seen by provider: Mar 11, 2019 Time seen by provider: 09:00 Admisison Dx: (1) Loss of consciousness The preadmission screen agrees with the post admission assessment that the patient is a good candidate for inpatient rehabilitation. The patient will have a comprehensive program of inpatient rehabilitation with a goal of maximizing level of functional independence prior to discharge home with family. The patient will have PT/OT ninety minutes per day, each discipline, five days a week for gait, strengthening, conditioning, balance, ADLs, any patient/family/caregiver training as necessary. Speech therapy to do cognitive assessment and treat as indicated. Rehabilitation nursing to assist with bowel, bladder, skin, wound care, medication administration, pain management. Major League Baseball Umpire to assist with discharge planning, community reentry. SCD's for DVT prophylaxis. She appears to be well motivated to participate in three hours of therapy a day. She should be able to tolerate three hours of therapy a day from a medical standpoint. She should benefit from the three hours of therapy a day. She has a reasonable discharge plan, reasonable discharge rehabilitation goals and a supportive family. She has various comorbidities that need to be closely monitored with medications and treatments adjusted on a daily basis as needed. These include: see list Barriers to discharge for this patient who had been independent prior to this are for her to be modified independent to supervision for ADLs and mobility skills prior to discharge home with family, so as to lessen the burden of the caregivers. Risks for this patient include: 1. Fall 2. Fracture 3. DVT 4. Pulmonary embolism 5. Wound infection 6. Skin breakdown 7. Contractures 8. Poorly controlled pain 9. Urinary retention 10. UTI 11. Respiratory infection 12. Aspiration Estimated Length of Stay: 7 days Prognosis: Rehab prognosis appears good for goal of discharge home with family modified independent to supervision for ADLs and mobility skills. NITZA KEITH DO Mar 11, 2019 08:40
[2019-03-11] MEDS ORDERED: NON-FORMULARY MEDICATION 1 EA EA (Cholecalciferol (Vitamin D3) (Vitamin D3) 1,000 UNIT) PO SCH (09:00)
--- NOTE | 2019-03-11 10:25 | Occupational Ther Daily Note ---
OT Current Status-Daily Note Subjective Pt sitting in chair, agrees to treatment. Pt reports 4/10 headache, RN present and aware. Mental Status/Objective Therapy Code Descriptions/Definitions Functional [place] Measure: 0=Not Assessed/NA 4=Minimal Assistance 1=Total Assistance 5=Supervision or Setup 2=Maximal Assistance 6=Modified [place] 3=Moderate Assistance 7=Complete [place] ADL-Treatment Pt agreeable to treatment this am. Sit to stand with supervision. Gait to restroom with FWW. Transfer to toilet with SBA. Pt able to complete toileting hygiene and clothing management with SBA. Transfer to walk in shower with SBA using grab bar for safety. [place] clothing without assist. Seated bathing completed using hand held shower. Able to bathe all areas with supervision. Close SBA for balance during standing to wash buttocks and sola area. Don bra and pullover shirt with set up. Pt able to thread bilateral LE into underwear and pants. Stood with supervision for balance during pant hike. Don socks with set up. Pt stood at sink to comb hair with SBA, states she has already brushed teeth this morning. Pt transferred to chair with SBA with FWW. Sitting in chair with needs met after session. Therapy Code Descriptions/Definitions Functional [place] Measure: 0=Not Assessed/NA 4=Minimal Assistance 1=Total Assistance 5=Supervision or Setup 2=Maximal Assistance 6=Modified [place] 3=Moderate Assistance 7=Complete [place] Therapy Quality Codes: 6 Independent with activity with or without an assistive device 5 Patient requires set up or clean up by helper. Patient completes activity by themselves 4 Supervision or touching assist (CGA). [place] provide cues , steadying assist 3 The helper provides less than half the effort to complete the activity 2 The helper provides more than half the effort to complete the activity 1 Dependent. The helper does all the effort to complete an activity 7 Patient refused to complete or attempt activity 9 The patient did not perform the activity before the current illness or injury 88 Not attempted due to Medical conditions or safety concerns Grooming (FIM): 5 Bathing (FIM): 5 Upper Body (FIM): 5 Upper Body Dressing (QC): 5 Lower Body Dressing (FIM): 5 Lower Body Dressing (QC): 4 On/Off Footwear (QC): 5 Toileting (FIM): 5 Toileting Hygiene (QC): 4 Toilet/Commode Transfer (FIM): 5 Toilet Transfer (QC): 4 Shower Transfer(FIM): 5 OT Short Term Goals Short Term Goals Transfers (B,C,W/C) (FIM): 6 1=Demonstrate adherence to instructed precautions during ADL tasks. 2=Patient will verbalize/demonstrate understanding of assistive devices/modifications for ADL. 3=Patient will improve strength/tolerance for activity to enable patient to perform ADL's. OT Lithographic Proofer Apprentice Goals Snf Goals Time Frame: Mar 24, 2019 Eating (FIM): 6 Eating (QC): 6 Groomin Oral Hygiene (QC): 6 Bathing(FIM): 5 Shower/Bathe Self (QC): 5 Upper Body Dressing(FIM): 6 Upper Body Dressing (QC): 6 Lower Body Dressing(FIM): 6 Lower Body Dressing (QC): 6 On/Off Footwear (QC): 6 Toileting(FIM): 6 Toileting Hygiene (QC): 6 Transfers (B,C,W/C) (FIM): 6 Toilet/Commode Transfer(FIM): 6 Toilet/Commode Transfer (QC): 6 Shower Transfer(FIM): 5 1=Demonstrate adherence to instructed precautions during ADL tasks. 2=Patient will verbalize/demonstrate understanding of assistive de vices/modifications for ADL. 3=Patient will improve strength/tolerance for activity to enable patient to perform ADL's. OT Education/Plan Discharge Recommendations Plan/Recommendations: Continue POC Treatment Plan/Plan of Care Patient would benefit from OT for education, treatment and training to promote independence in ADL's, mobility, safety and/or upper extremity function for ADL's. Plan of Care: ADL Retraining, Functional Mobility, Group Exercise/Act as Ind, UE Funct Exercise/Act Treatment Duration: Mar 24, 2019 Frequency: At least 5 of 7 days/Wk (IRF) Estimated Hrs Per Day: 1.5 hours per day Agreement: Yes Rehab Potential: Good Time/GCodes Start Time: 08:00 Stop Time: 09:00 Total Time Billed (hr/min): 60 Billed Treatment Time 1 visit, ADLx4(60minutes) SHERWIN NÚÑEZ OT Mar 11, 2019 10:25
--- NOTE | 2019-03-11 10:54 | Physical Therapy Daily Note ---
PT Daily Note-Current Subjective Patient in recliner pre tx, agrees to PT, states she has her "normal pain" in her left knee. Appearance Patient in recliner post tx with nurse call, phone, tray, all needs met. Mental Status Patient Orientation: Normal For Age Transfers Therapy Code Descriptions/Definitions Functional [place] Measure: 0=Not Assessed/NA 4=Minimal Assistance 1=Total Assistance 5=Supervision or Setup 2=Maximal Assistance 6=Modified [place] 3=Moderate Assistance 7=Complete [place] Therapy Quality Codes: 6 Independent with activity with or without an assistive device 5 Patient requires set up or clean up by helper. Patient completes activity by themselves 4 Supervision or touching assist (CGA). [place] provide cues , steadying assist 3 The helper provides less than half the effort to complete the activity 2 The helper provides more than half the effort to complete the activity 1 Dependent. The helper does all the effort to complete an activity 7 Patient refused to complete or attempt activity 9 The patient did not perform the activity before the current illness or injury 88 Not attempted due to Medical conditions or safety concerns Transfers (B, C, W/C) (FIM): 5 Sit to/from Stand: 5 Bed to/from Chair: 5 Gait Training Gait (FIM): 5 Distance: 200'x3 Gait Level of Assist: 5 Gait Persons Needed: 1 Gait Assistive Device: FWW slow, cues for direction, a little unsteadiness with turning but no LOB Exercises Standing: Hip Abduction (x15 on L and x10 on R), Heel/toe raises (x15), Mini squats (x10) NuStep Minutes: 15 NuStep Workload: 5 (left leg not used due to knee pain) Neuromuscular stance feet together on airex 1 min, tandem stance x2 30 sec each time Treatments balance training, transfers, ambulation, LE strengthening Assessment Current Status: Fair Progress has trouble doing a lot of LE exercise due to left knee pain PT Short Term Goals Short Term Goals Time Frame: Mar 17, 2019 Transfers (B,C,W/C) (FIM): 6 Gait (FIM): 5 Gait Distance Comment: 200' Gait Level of Assist: 5 Gait Assistive Device: FWW PT Mcc Goals Gas Compressor Operator Goals PT Mcc Goals Time Frame: Mar 31, 2019 Transfers (B,C,W/C) (FIM): 6 Sit to Lying (QC): 6 Lying-Sitting on Side/Bed(QC): 6 Sit to Stand (QC): 6 Rollin Roll Left to Right (QC): 6 Chair/Cpx-se-Ummnz Xfer(QC): 6 Car Transfer (QC): 6 Gait (FIM): 6 Distance: 300' Walk 10 feet (QC): 6 Walk 10ft-Uneven Surface(QC): 6 Walk 50ft with 2 Turns (QC): 6 Walk 150 ft (QC): 6 Gait Level of Assist: 6 Gait Assistive Device: FWW Stairs (FIM): 4 # of Steps: 12 1 Step (curb) (QC): 4 4 Steps (QC): 4 12 Steps (QC): 4 Stairs Level Of Assist: 4 PT Plan Problem List Problem List: Activity Tolerance, Functional Strength, Safety, Balance, Gait, Transfer Treatment/Plan Treatment Plan: Continue Plan of Care Treatment Plan: Bed Mobility, Education, Functional Activity [place], Functional Strength, Group Therapy, Gait, Safety, Therapeutic Exercise, Transfers Treatment Duration: Mar 31, 2019 Frequency: At least 5 of 7 days/Wk (IRF) Estimated Hrs Per Day: 1.5 hours per day Patient and/or Family Agrees t: Yes Safety Risks/Education Patient Education: Gait Training, Transfer Techniques, Correct Positioning, Safety Issues Teaching Recipient: Patient Teaching Methods: Demonstration, Discussion Response to Teaching: Reinforcement Needed Time/GCodes Time In: 1000 Time Out: 1100 Total Billed Treatment Time: 60 Total Billed Treatment 1 visit EX 30' GT 30' CLARISSE SIMMS PT Mar 11, 2019 10:54
--- NOTE | 2019-03-11 13:08 | NUR ---
INTERNAL COMBUSTION ENGINE ASSEMBLER met with patient to complete initial assessment, patient was alert and oriented 4 and agreeable to assessment; however, does report new development of slight memory loss. Patient is very pleasant and expresses gratitude for ARU placement. Prior to current hospitalization, patient resided alone in [place], [place]. The home was [facility] level; however, she did not utilize the upstairs, but does have four steps at the entrance with a handrail. Patient admitted to ARU from [facility] with debility following a fall that resulted in a concussion with loss of consciousness. Patient reports that she has not had a fall since approx. a year ago, but this event was much different than any other. Prior to this fall, patient ambulated independently and occasionally with a rollator walker, she was independent with adls, but utilized a transit worker and meals on wheels. In additional walker, she also utilizes a CPAP.. Patient identifies primary contacts as son, Tariq at [phone] and secondary contact as [id number], Dr. Keith ([phone]). INTERNAL COMBUSTION ENGINE ASSEMBLER verified PCP as Dr. Keith. Patient has Medicare and [email or web address] supplement with prescription coverage with preferred pharmacy of [email or web address]. INTERNAL COMBUSTION ENGINE ASSEMBLER reviewed typical rehabilitation length of stay and weekly team conferences with patient, she expressed no concerns at this time. INTERNAL COMBUSTION ENGINE ASSEMBLER will follow for appropriate discharge needs.
--- NOTE | 2019-03-11 13:40 | ST Cognitive Linguistic Eval ---
Speech Evaluation-General Medical Diagnosis concussion with loss of consiousness Onset Date: Mar 08, 2019 Therapy Diagnosis Bad table Precautions Precautions/Isolations: Fall Prevention, Standard Precautions Referral Reason for Referral: Evaluation/Treatment Medical History Pertinent Medical History: COPD, HTN, [place], Rheumatic Heart Disease Reviewed History: Yes Social History Current Living Status: Alone Speech PLF-Current Status Prior Level of Function independent Subjective Patient was alert, pleasant, and cooperative Language Eval: Auditory Comprehends Simple Yes/No Ques: Functional Follows 1-Step Commands: Functional Follows General Conversations: Functional Language Eval: Verbal Language Completes Spontaneous Greeting: Functional Cognitive Patient Orientation Patient oriented to day, year, place Objective Cognitive Domain Attention: WNL Memory: Mild Problem Solving: Mild Executive Functions: Mild Visuospatial Skills: WNL Clock Drawing Severity Rating: WNL Objective Formal/Standardized Tests Patient was given the [facility] Mental Status (UMS) Examination and scored 23/30 indicating mild neurocognitive disorder. Carolyn had mild difficulty with memory tasks Results Patient presented with mild neurocognitive disorder Oral Motor/Speech Production Oral motor and speech skills are WNL Impression Mild cognitive deficits impact memory and executive function skills. Speech therapy is recommended at this time Communication/Social Cognition Comprehension: 6 Expression: 7 Social Interaction: 7 Problem Solvin Memory: 6 Speech Patient Assess Expression of Ideas/Wants: Expression (4) Understanding Verbal Content: Understands (4) Brief Interview-Mental Status: Yes Temporal Orientation: Year: Correct (3) Temporal Orientation: Day: Correct (1) Speech Short Term Goals Short Term Goals Short Term Goals Patient will demonstrate problem solving and memory for functional tasks with 80% accuracy with minimal cues Speech Hammer Mill Operator Goals Shelter Goals Patient will improve problem solving and memory skills necessary for daily living tasks with minimal assist Speech-Plan Patient/Family Goals Patient/Family Goals: patient expressed noticable cognitive decline and hopes to improve cognition Treatment Plan Speech Therapy Treatment Plan: Continue Plan of Care Patient has mild cognitive deficits impairing memory and problem solving skills Treatment Duration: Mar 25, 2019 Frequency: 5 times per week Estimated Hrs Per Day: .5 hour per day Rehab Potential: Good Barriers to Learning: mild cognitive deficits Pt/Family Agrees to Plan: Yes Safety Risks/Education Teaching Recipient: Patient Teaching Methods: Discussion Response to Teaching: Verbalize Understanding Education Topics Provided: cognition including memory and problem solving Time Speech Therapy Time In: 09:45 Speech Therapy Time Out: 10:00 Total Billed Time: 15 Billed Treatment Time 1, SPSNDDENISE CHRISTIE Mar 11, 2019 13:39
--- NOTE | 2019-03-11 14:51 | Therapy Group Daily Note ---
Therapy Daily Group Note Patient Education Topic Home Safety, Fall Prevention, Home Safety Session Ratio (pt:therapist): 3:1 Goal of Session: Energy Conservation Tech., Home Safety Strategies, Memory Strategies Goal Met for this Session: Yes Pt Benefit of Group: Contributions to Others, F/U Use of Strategies @Home, Increased Functional Safety, Improved Cognition, Recognition of Peers, Socialization Other/Notes Each patient had group therapy in the common area of rehab. Each patient ambulated or was transported to a couple of tables and seated with other patient's. Each patient had to introduce themselves and were given info to introduce themselves to rehab. They played a game then that involved social interaction and covered different subjects of education such a decreasing falls and home safety. After that, each patient ambulated or was transported back to their room and put in bed or chair with nurse call, phone, tray. Start Time: 12:50 Stop Time: 13:50 Total Billed Treatment Time: 60 Total Billed Treatment 1 visit [facility] 60' CLARISSE SIMMS PT Mar 11, 2019 14:51
--- NOTE | 2019-03-11 17:08 | Individualized Plan of Care ---
Individualized Plan of Care Rehab Nursing IPOC Order Admission Date Mar 10, 2019 at 10:19 Current Orders Orders Admission Order(Inpt,Obs,Sdc) (03/10/19 09:38) Engraver Set Up Operator-Inpt Rehab Con (03/10/19 09:38) Rehab Nursing Orders-Ipoc (03/10/19 09:38) Physical Therapy Rehab Orders (03/10/19 09:38) Occupational Therapy Rehab Ord (03/10/19 09:38) Speech Therapy Rehab Orders (03/10/19 09:38) Intake & Output 06,14,22 (03/10/19 09:38) Precautions (Aru) (03/10/19 09:38) Weekly Weight (Lbs) WEEK (03/10/19 09:38) Rehab-Intensity Of Therapy (03/10/19 09:38) Heart Healthy (03/10/19 Lunch) Ambulate 08,12,20 (03/10/19 11:08) Sequential Compression Device 08,20 (03/10/19 11:08) Dvt/Vte Risk - Notifiy Physici 08 (03/10/19 11:08) Cyanocobalamin Injection (Vitamin B-12 I (03/14/19 09:00) Sertraline Tablet (Zoloft Tablet) (03/10/19 21:00) (Nf) Cholecalciferol (Vitamin D3) (Vitam (03/11/19 09:00) (Nf) Oxycodone Hcl (03/10/19 12:45) (Nf) Lisinopril/Hydrochlorothiazide (Lis (03/10/19 21:00) Cholecalciferol Capsule/Tablet (Vitamin (03/11/19 09:00) Oxycodone Immediate Rel Tablet (Oxyir Ta (03/10/19 12:45) Lisinopril Tablet (Zestril Tablet) (03/10/19 21:00) Hydrochlorothiazide Cap/Tablet (Hctz Cap (03/10/19 21:00) Patient Visit (03/10/19 ) Pt Eval Moderate Complexity (03/10/19 ) Gait Training, Ea 15 Min (03/10/19 ) Patient Visit (03/10/19 ) Exercise Therap, Ea 15 Min (03/10/19 ) Gait Training, Ea 15 Min (03/10/19 ) Cbc With Automated Diff (03/11/19 06:00) Comprehensive Metabolic Panel (03/11/19 06:00) Iron Test (Fe) (03/11/19 06:00) Thyroid Stimulating Hormone (03/11/19 06:00) Polyethylene Glycol Powder Pkt (Miralax (03/11/19 08:15) Polyethylene Glycol Powder Pkt (Miralax (03/11/19 08:15) Polyethylene Glycol Powder Pkt (Miralax (03/11/19 08:09) Patient Visit (03/11/19 ) Exercise Therap, Ea 15 Min (03/11/19 ) Gait Training, Ea 15 Min (03/11/19 ) Therapeutic, Group (03/11/19 ) Patient Visit (03/11/19 ) Speech Sound Lang Comp (03/11/19 ) Rehab Nursing Orders: Ongoing Assess. of Cognitive Status, Ongoing Assess. of Function Status, Bowel Management, Disease Management & Educaiton, DVT Prophylaxis, Fall Prevention, Fluid/Electrolyte/Nutrition Mgmt, Infection Prevention, Medication Management & Education, Management of Risks & Complications, Management of Skin Intergrity, Nutrition Management, Pain Management, Patient/Family Support, Safety Management Intensity of Therapy to be met Patient to be seen: Min.3h per day/5 of 7d PT IPOC Problem List: Activity Tolerance, Functional Strength, Safety, Balance, Gait, Transfer Treatment Plan: Continue Plan of Care Bed Mobility, Education, Functional Activity [place], Functional Strength, Group Therapy, Gait, Safety, Therapeutic Exercise, Transfers Treatment Duration: Mar 31, 2019 Frequency: At least 5 of 7 days/Wk (IRF) Estimated Hrs Per Day: 1.5 hours per day OT IPOC Problems: Decreased Activ Tolerance, Impaired I ADL's, Impaired Self-Care Skills OT Treatment, Training and Edu: Yes Plan of Care: ADL Retraining, Functional Mobility, Group Exercise/Act as Ind, UE Funct Exercise/Act Treatment Duration: Mar 24, 2019 Frequency: At least 5 of 7 days/Wk (IRF) Estimated Hrs Per Day: 1.[address] IPOC Speech Therapy Treatment Plan: Continue Plan of Care Treatment Duration: Mar 25, 2019 Frequency: 5 times per week Estimated Hrs Per Day: .5 hour per day Engraver Set Up Operator/Case Mgmt Engraver Set Up Operator/Case Managemen: Discharge Planning Dietitian/Respooler Dietitian/Respooler to monitor nutritional status and make changes and/or recommendations as needed and work with speech pathology on dietary upgrades as the occur. Physician IPOC Medical Issues being managed closely and that require the 24 hour availability of a physician: Recent fall with LOC and extensive scalp laceration with moderate blood loss with h/o labile HTN and multiple falls and advanced age will require close monitoring for falls and fluctuations of BP Medical Issues: Bowel/Bladder Function, DVT Prophylaxis, Falls Precautions, Fluid/Electrolyte/Nutrition Balance, Pain Management Brief Synthesis of Preadmission Screen, Post-Admission Evaluation, and Therapy Evaluations: PT will focus on ambulation and safety precautions OT will focus on independent ADL's and safety ST will focus on cognition Medical Prognosis: Good Anticipated Length of Stay: 7 days LIV STONE DO Mar 11, 2019 17:07
[2019-03-11 17:38] VITALS: BP 172/77
--- NOTE | 2019-03-11 17:43 | NUR ---
Dr. Keith notified of elevated B/P.
[2019-03-11] MEDS ORDERED: KCL 10 MEQ TAB (MICRO K) PO NR (19:45)
[2019-03-11] MEDS ORDERED: KCL 10 MEQ TAB (MICRO K) PO ONE (19:47)
[2019-03-12 05:19] VITALS: BP 178/79
[2019-03-12] MEDS: KCL 10 MEQ TAB (MICRO K) PO SCH (06:09)
[2019-03-12] MEDS: SERTRALINE 100 MG (ZOLOFT) TAB PO SCH ×2 (08:15→20:16)
[2019-03-12] MEDS: lisINopril 20 MG (PRINIVIL) TABLET PO SCH ×2 (08:15→20:15)
[2019-03-12] MEDS: VITAMIN D3 1,000 UNITS (CHOLECALCIFEROL) TABLET PO SCH (08:15)
[2019-03-12] MEDS: HYDROCHLOROTHIAZIDE 25 MG (HCTZ) TAB PO SCH ×2 (08:15→20:15)
--- NOTE | 2019-03-12 10:29 | Physical Therapy Daily Note ---
PT Daily Note-Current Subjective Patient states she is having a bad day but agrees to PT. Mental Status Patient Orientation: Normal For Age Transfers Therapy Code Descriptions/Definitions Functional [place] Measure: 0=Not Assessed/NA 4=Minimal Assistance 1=Total Assistance 5=Supervision or Setup 2=Maximal Assistance 6=Modified [place] 3=Moderate Assistance 7=Complete [place] Therapy Quality Codes: 6 Independent with activity with or without an assistive device 5 Patient requires set up or clean up by helper. Patient completes activity by themselves 4 Supervision or touching assist (CGA). [place] provide cues , steadying assist 3 The helper provides less than half the effort to complete the activity 2 The helper provides more than half the effort to complete the activity 1 Dependent. The helper does all the effort to complete an activity 7 Patient refused to complete or attempt activity 9 The patient did not perform the activity before the current illness or injury 88 Not attempted due to Medical conditions or safety concerns Transfers (B, C, W/C) (FIM): 5 Scootin Sit to/from Stand: 5 Sit to Stand (QC): 5 Car Transfer (QC): 6 Gait Training Does the Patient Walk?: Yes Gait (FIM): 5 Distance (FIM): 3=150 ft Distance: 200' x 2 Walk 10 feet (QC): 5 Walk 50 ft with 2 Turns(QC): 5 Walk 150 ft (QC): 5 Gait Level of Assist: 5 Gait Assistive Device: FWW slow, steady, NBOS Exercises NuStep Minutes: 10 NuStep Workload: 3 (to improve strength and mobility) Assessment Patient progressing with treatment plan and is up in recliner with needs met. PT to increase activity as tolerated by patient. PT Short Term Goals Short Term Goals Time Frame: Mar 17, 2019 Transfers (B,C,W/C) (FIM): 6 Gait (FIM): 5 Gait Distance Comment: 200' Gait Level of Assist: 5 Gait Assistive Device: FWW PT Dumpling Machine Operator Goals Dumpling Machine Operator Goals PT [facility] Goals Time Frame: Mar 31, 2019 Transfers (B,C,W/C) (FIM): 6 Sit to Lying (QC): 6 Lying-Sitting on Side/Bed(QC): 6 Sit to Stand (QC): 6 Rollin Roll Left to Right (QC): 6 Chair/Dmw-qr-Yyuxs Xfer(QC): 6 Car Transfer (QC): 6 Gait (FIM): 6 Distance: 300' Walk 10 feet (QC): 6 Walk 10ft-Uneven Surface(QC): 6 Walk 50ft with 2 Turns (QC): 6 Walk 150 ft (QC): 6 Gait Level of Assist: 6 Gait Assistive Device: FWW Stairs (FIM): 4 # of Steps: 12 1 Step (curb) (QC): 4 4 Steps (QC): 4 12 Steps (QC): 4 Stairs Level Of Assist: 4 PT Plan Treatment/Plan Treatment Plan: Continue Plan of Care Treatment Plan: Bed Mobility, Education, Functional Activity [place], Functional Strength, Group Therapy, Gait, Safety, Therapeutic Exercise, Transfers Treatment Duration: Mar 31, 2019 Frequency: At least 5 of 7 days/Wk (IRF) Estimated Hrs Per Day: 1.5 hours per day Patient and/or Family Agrees t: Yes Time/GCodes Time In: 942 Time Out: 959 Total Billed Treatment Time: 17 Total Billed Treatment 1 visit FA 17 min FATUMA SABILLON PT Mar 12, 2019 10:29
--- NOTE | 2019-03-12 10:47 | PM&R Progress Note ---
Subjective HPI/CC On Admission Date Seen by Provider: Mar 12, 2019 Time Seen by Provider: 10:30 CC: Fall with scalp laceration and loss of consciousness HPI: This is an 88yoWF clinic patient of mine for the past 15.5 years who has a h/o HTN labile and malignant type, severe scoliosis requiring narcotic pain meds and renal insufficiency who presents to IRF after DC from observation at [facility] following a fall at her house on Thursday morning. She has no recollection of the fall and she did experience LOC and suffered a significant scalp laceration which required suturing in ER and moderate to severe blood loss resulting in acute anemia of hgb 10. Patient was assumed to have become orthostatic and resulted in the fall. Her cleaning lady happened to be at the house and heard the fall and came to her immediately after it occurred and her son was called and EMS was notified. All xrays and images were without fractures. She lives at home alone with family checking in twice daily and she was independent of ADL's and ambulation with walker at times. She will return to her home with additional family support in addition to medical alert system addition. She had become more short of breath with activity since her fall and has not been using her CPAP. Subjective/Events-last exam No major issues Has some shortness of breath when she is exerting herself so I did order incentive spirometer and ordered albuterol neb treatments twice daily MiraLAX given daily on schedule line bowels are moving No falls Continues to gain strength every day Sleeping well Overall feels like she is making progress Continues to be a fall risk and will focus on fall prevention Doing pretty well with ADLs Check meds and labs Reviewed therapy notes Conferred with cattle driver of Systems General: Fatigue Pulmonary: Dyspnea Objective Exam Vital Signs Vital Signs Date Time Temp Pulse Resp B/P (MAP) Pulse Ox O2 Delivery O2 Flow Rate FiO2 03/13/19 09:00 96 Room Air 03/13/19 05:09 98.4 71 18 188/81 (116) Capillary Refill : General Appearance: No Apparent Distress, WD/WN, Chronically ill, Thin HEENT: PERRL/EOMI, Normal ENT Inspection, Pharynx Normal, Moist Mucous Membranes Neck: Full Range of Motion, Normal Inspection, Non Tender, Supple Respiratory: Chest Non Tender, Lungs Clear, Normal Breath Sounds, No Accessory Muscle Use, No Respiratory Distress, Crackles (LLL chronic) Cardiovascular: Regular Rate, Rhythm, No Edema, No Gallop, No JVD, No Murmur Gastrointestinal: Normal Bowel Sounds, No Organomegaly, No Pulsatile Mass, Non Tender, Soft Back: Normal Inspection, No CVA Tenderness, No Vertebral Tenderness Extremity: Normal Capillary Refill, Normal Inspection, Normal Range of Motion, Non Tender, No Calf Tenderness, No Pedal Edema Neurologic/Psychiatric: Alert, Oriented x3, No Motor/Sensory Deficits, Normal Mood/Affect, cake puncher II-XII Norm as Tested, Motor Weakness (generalized weakness legs) Skin: Normal Color, Warm/Dry Lymphatic: No Adenopathy Results/Procedures Lab Patient resulted labs reviewed. FIM Transfers Therapy Code Descriptions/Definitions Functional [place] Measure: 0=Not Assessed/NA 4=Minimal Assistance 1=Total Assistance 5=Supervision or Setup 2=Maximal Assistance 6=Modified [place] 3=Moderate Assistance 7=Complete [place] Therapy Quality Codes: 6 Independent with activity with or without an assistive device 5 Patient requires set up or clean up by helper. Patient completes activity by themselves 4 Supervision or touching assist (CGA). [place] provide cues , steadying assist 3 The helper provides less than half the effort to complete the activity 2 The helper provides more than half the effort to complete the activity 1 Dependent. The helper does all the effort to complete an activity 7 Patient refused to complete or attempt activity 9 The patient did not perform the activity before the current illness or injury 88 Not attempted due to Medical conditions or safety concerns Transfers (B, C, W/C) (FIM): 5 Scootin Rollin Roll Left to Right (QC): 6 Supine to/from Sit: 6 Sit to/from Stand: 5 Sit to Lying (QC): 6 Sit to Stand (QC): 5 Chair/Nml-nu-Kqzjy Xfer(QC): 4 Bed to/from Chair: 5 Car Transfer (QC): 6 Gait Training Does the Patient Walk?: Yes Gait (FIM): 5 Distance (FIM): 3=150 ft Distance: 200' x 2 Walk 10 feet (QC): 5 Walk 50 ft with 2 Turns(QC): 5 Walk 150 ft (QC): 5 Walking 10ft/uneven surface-QC: 4 Gait Level of Assist: 5 Gait Persons Needed: 1 Gait Assistive Device: FWW Stair Training Stairs (FIM): 2 #of Steps: 4 1 Step (curb) (QC): 4 4 Steps (QC): 4 Level of Assist: 4 Mental Status/Objective Comprehension: 6 Expression: 7 Social Interaction: 7 Problem Solvin Memory: 6 ADL-Treatment Feedin Eating (QC): 6 Groomin Bathin Upper Extremity Dressin Upper Body Dressing (QC): 5 Lower Extremity Dressin Lower Body Dressing (QC): 4 On/Off Footwear (QC): 5 Toiletin Toileting Hygiene (QC): 4 Toilet/Commode Transfer: 5 Toilet Transfer (QC): 4 Shower: 5 Assessment/Plan Assessment and Plan Assess & Plan/Chief Complaint Assessment: Fall with acute LOC Scalp laceration Anemia from acute blood loss HTN labile and malignant type CRI Hypokalemia HLP ANA MARIA Asthma Plan: Home meds IRF protocol HTN monitoring Fall prevention Nebs BID IS Chronic pain meds Miralax (1) Loss of consciousness (2) Scoliosis (3) COPD (chronic obstructive pulmonary disease) (4) Hypokalemia (5) Hyperlipidemia (6) Narcotic dependence (7) Renal insufficiency (8) Knee pain (9) Diverticula of colon (10) Hypertension (11) Asthma (12) B12 deficiency (13) History of GI bleed (14) History of rheumatic fever as a child (15) ANA MARIA on CPAP (16) Anemia due to acute blood loss (17) Fall (18) Scalp laceration LIV STONE DO Mar 12, 2019 10:47
[2019-03-12] MEDS ORDERED: RT-ALBUTEROL SULF 2.5 MG/3 ML PRE-MIX VIAL INH PRN (11:15)
[2019-03-12] MEDS ORDERED: ARTIFICAL TEARS 0.4 ML UNIT DOSE (REFRESH PLUS) OU PRN (11:15)
[2019-03-12 17:11] VITALS: BP 167/69
[2019-03-12] MEDS: POLYETHYLENE GLYCOL 17 GM (MIRALAX) PACK PO PRN (18:05)
[2019-03-13 05:09] VITALS: BP 188/81
[2019-03-13] MEDS: KCL 10 MEQ TAB (MICRO K) PO SCH (06:14)
[2019-03-13] MEDS: VITAMIN D3 1,000 UNITS (CHOLECALCIFEROL) TABLET PO SCH (08:24)
[2019-03-13] MEDS: lisINopril 20 MG (PRINIVIL) TABLET PO SCH ×2 (08:24→20:48)
[2019-03-13] MEDS: SERTRALINE 100 MG (ZOLOFT) TAB PO SCH ×2 (08:24→20:48)
[2019-03-13] MEDS: HYDROCHLOROTHIAZIDE 25 MG (HCTZ) TAB PO SCH ×2 (08:24→20:48)
--- NOTE | 2019-03-13 10:01 | NUR ---
Pt encouraged to do I.S. and demonstrated effectively. Declined breathing treatment and informed pt that if she needed one to ask and I'll call resp therapy. Pt agreed and verbalized understanding. Denies complaints, questions or concerns at this time. Miralax given prn yesterday with positive results. Call light in reach. Will con to monitor.
--- NOTE | 2019-03-13 14:13 | PM&R Progress Note ---
Subjective HPI/CC On Admission Date Seen by Provider: Mar 13, 2019 Time Seen by Provider: 12:15 CC: Fall with scalp laceration and loss of consciousness HPI: This is an 88yoWF clinic patient of mine for the past 15.5 years who has a h/o HTN labile and malignant type, severe scoliosis requiring narcotic pain meds and renal insufficiency who presents to IRF after DC from observation at [facility] following a fall at her house on Thursday morning. She has no recollection of the fall and she did experience LOC and suffered a significant scalp laceration which required suturing in ER and moderate to severe blood loss resulting in acute anemia of hgb 10. Patient was assumed to have become orthostatic and resulted in the fall. Her cleaning lady happened to be at the house and heard the fall and came to her immediately after it occurred and her son was called and EMS was notified. All xrays and images were without fractures. She lives at home alone with family checking in twice daily and she was independent of ADL's and ambulation with walker at times. She will return to her home with additional family support in addition to medical alert system addition. She had become more short of breath with activity since her fall and has not been using her CPAP. Subjective/Events-last exam MiraLAX very effective Refused nebulizer treatments and she is not short of breath today but that may change when she is exerting with physical therapy Wants something for indigestion so I ordered times but she would prefer baking soda with water so that was ordered Family visiting today which is helping her morale Continues to be a fall risk will focus on that this week Pain is well controlled from headache No other loss of consciousness reported Labile hypertension documented Conferred with RN Reviewed therapy notes Check meds and labs Review of Systems General: Fatigue Pulmonary: Dyspnea Objective Exam Vital Signs Vital Signs Date Time Temp Pulse Resp B/P (MAP) Pulse Ox O2 Delivery O2 Flow Rate FiO2 03/13/19 09:00 96 Room Air 03/13/19 05:09 98.4 71 18 188/81 (116) Capillary Refill : General Appearance: No Apparent Distress, WD/WN, Chronically ill, Thin HEENT: PERRL/EOMI, Normal ENT Inspection, Pharynx Normal, Moist Mucous Membranes Neck: Full Range of Motion, Normal Inspection, Non Tender, Supple Respiratory: Chest Non Tender, Lungs Clear, Normal Breath Sounds, No Accessory Muscle Use, No Respiratory Distress Cardiovascular: Regular Rate, Rhythm, No Edema, No Gallop, No JVD, No Murmur Gastrointestinal: Normal Bowel Sounds, No Organomegaly, No Pulsatile Mass, Non Tender, Soft Back: Normal Inspection, No CVA Tenderness, No Vertebral Tenderness Extremity: Normal Capillary Refill, Normal Inspection, Normal Range of Motion, Non Tender, No Calf Tenderness, No Pedal Edema Neurologic/Psychiatric: Alert, Oriented x3, No Motor/Sensory Deficits, Normal Mood/Affect, 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 FIM Transfers Therapy Code Descriptions/Definitions Functional [place] Measure: 0=Not Assessed/NA 4=Minimal Assistance 1=Total Assistance 5=Supervision or Setup 2=Maximal Assistance 6=Modified [place] 3=Moderate Assistance 7=Complete [place] Therapy Quality Codes: 6 Independent with activity with or without an assistive device 5 Patient requires set up or clean up by helper. Patient completes activity by themselves 4 Supervision or touching assist (CGA). [place] provide cues , steadying assist 3 The helper provides less than half the effort to complete the activity 2 The helper provides more than half the effort to complete the activity 1 Dependent. The helper does all the effort to complete an activity 7 Patient refused to complete or attempt activity 9 The patient did not perform the activity before the current illness or injury 88 Not attempted due to Medical conditions or safety concerns Transfers (B, C, W/C) (FIM): 5 Scootin Rollin Roll Left to Right (QC): 6 Supine to/from Sit: 6 Sit to/from Stand: 5 Sit to Lying (QC): 6 Sit to Stand (QC): 5 Chair/Rmg-je-Gbujc Xfer(QC): 4 Bed to/from Chair: 5 Car Transfer (QC): 6 Gait Training Does the Patient Walk?: Yes Gait (FIM): 5 Distance (FIM): 3=150 ft Distance: 200' x 2 Walk 10 feet (QC): 5 Walk 50 ft with 2 Turns(QC): 5 Walk 150 ft (QC): 5 Walking 10ft/uneven surface-QC: 4 Gait Level of Assist: 5 Gait Persons Needed: 1 Gait Assistive Device: FWW Stair Training Stairs (FIM): 2 #of Steps: 4 1 Step (curb) (QC): 4 4 Steps (QC): 4 Level of Assist: 4 Mental Status/Objective Comprehension: 6 Expression: 7 Social Interaction: 7 Problem Solvin Memory: 6 ADL-Treatment Feedin Eating (QC): 6 Groomin Bathin Upper Extremity Dressin Upper Body Dressing (QC): 5 Lower Extremity Dressin Lower Body Dressing (QC): 4 On/Off Footwear (QC): 5 Toiletin Toileting Hygiene (QC): 4 Toilet/Commode Transfer: 5 Toilet Transfer (QC): 4 Shower: 5 Assessment/Plan Assessment and Plan Assess & Plan/Chief Complaint Assessment: Fall with acute LOC Scalp laceration Anemia from acute blood loss HTN labile and malignant type CRI Hypokalemia HLP ANA MARIA Asthma Plan: Home meds IRF protocol HTN monitoring Fall prevention Miralax DC home [place] with additional family support and alarm system (1) Loss of consciousness (2) Scoliosis (3) COPD (chronic obstructive pulmonary disease) (4) Hypokalemia (5) Hyperlipidemia (6) Narcotic dependence (7) Renal insufficiency (8) Knee pain (9) Diverticula of colon (10) Hypertension (11) Asthma (12) B12 deficiency (13) History of GI bleed (14) History of rheumatic fever as a child (15) ANA MARIA on CPAP (16) Anemia due to acute blood loss (17) Fall (18) Scalp laceration LIV STONE DO Mar 13, 2019 14:12
[2019-03-13 17:15] VITALS: BP 134/66
[2019-03-13] MEDS: POLYETHYLENE GLYCOL 17 GM (MIRALAX) PACK PO PRN (17:50)
[2019-03-14] MEDS: KCL 10 MEQ TAB (MICRO K) PO SCH (06:01)
[2019-03-14 06:33] VITALS: BP 148/76
[2019-03-14] MEDS ORDERED: CYANOCOBALAMIN INJ 1000 MCG/ML IM SCH (09:00)
[2019-03-14] MEDS: VITAMIN D3 1,000 UNITS (CHOLECALCIFEROL) TABLET PO SCH (09:02)
[2019-03-14] MEDS: HYDROCHLOROTHIAZIDE 25 MG (HCTZ) TAB PO SCH ×2 (09:02→20:11)
[2019-03-14] MEDS: lisINopril 20 MG (PRINIVIL) TABLET PO SCH ×2 (09:02→20:11)
[2019-03-14] MEDS: SERTRALINE 100 MG (ZOLOFT) TAB PO SCH ×2 (09:02→20:11)
[2019-03-14 09:06] VITALS: BP 150/72
--- NOTE | 2019-03-14 10:10 | Speech Therapy Daily Note ---
Speech Daily Progress Note Subjective Date Seen by Provider: Mar 14, 2019 Time Seen by Provider: 00:30 The patient was c/o scapula pain which she took pain pill for. Objective The patient completed memory exercises with 80% accuracy given minimal verbal cues. Communication Comprehension: 6 Expression: 7 Social Cognition Social Interaction: 7 Problem Solvin Memory: 6 Speech Short Term Goals Short Term Goals Short Term Goals Patient will demonstrate problem solving and memory for functional tasks with 80% accuracy with minimal cues Speech Monitor Technician Goals Halfway Goals Patient will improve problem solving and memory skills necessary for daily living tasks with minimal assist Speech-Plan Patient/Family Goals Patient/Family Goals: The patient plans on returning home post rehab. Treatment Plan Speech Therapy Treatment Plan: Continue Plan of Care The patient is expected to make progress with skilled ST services. Treatment Duration: Mar 25, 2019 Frequency: 5 times per week Estimated Hrs Per Day: .5 hour per day Rehab Potential: Good Barriers to Learning: The patient has cognitive deficits. Pt/Family Agrees to Plan: Yes Safety Risks/Education Teaching Recipient: Patient Teaching Methods: Discussion Response to Teaching: Verbalize Understanding Education Topics Provided: Safety within her room. Time Speech Therapy Time In: 09:00 Speech Therapy Time Out: 09:30 Total Billed Time: 30 Billed Treatment Time 1, LUISITO Oates Mar 14, 2019 10:10
--- NOTE | 2019-03-14 10:20 | Physical Therapy Daily Note ---
PT Daily Note-Current Subjective Pt. sitting up in recliner when approached for PT. Pt. states "I dont usually do this but I am not going to have therapies today " " I have had a pain in my right scapula that was followed by some chest pain, Monica had this before , the nurse knows about it and she will back me up". This COAL CHEMIST wanted to initiate BP , pulse, vital signs etc , pt. declined stating they had already been taken and are fine. This was all shared with other PTs more familiar with pt. as well as pts. nurse. All believe pt. can likely still participate in therapies and will approach her themselves to try to work through the issue. Transfers Therapy Code Descriptions/Definitions Functional [place] Measure: 0=Not Assessed/NA 4=Minimal Assistance 1=Total Assistance 5=Supervision or Setup 2=Maximal Assistance 6=Modified [place] 3=Moderate Assistance 7=Complete [place] Therapy Quality Codes: 6 Independent with activity with or without an assistive device 5 Patient requires set up or clean up by helper. Patient completes activity by themselves 4 Supervision or touching assist (CGA). [place] provide cues , steadying assist 3 The helper provides less than half the effort to complete the activity 2 The helper provides more than half the effort to complete the activity 1 Dependent. The helper does all the effort to complete an activity 7 Patient refused to complete or attempt activity 9 The patient did not perform the activity before the current illness or injury 88 Not attempted due to Medical conditions or safety concerns Assessment Current Status: Refused Treatment apparently having some scapular and chest discomfort which leaves her feeling she should not participate in therapies at this time PT Short Term Goals Short Term Goals Time Frame: Mar 17, 2019 Transfers (B,C,W/C) (FIM): 6 Gait (FIM): 5 Gait Distance Comment: 200' Gait Level of Assist: 5 Gait Assistive Device: FWW PT Buttoner Goals Buttoner Goals PT Care Home Goals Time Frame: Mar 31, 2019 Transfers (B,C,W/C) (FIM): 6 Sit to Lying (QC): 6 Lying-Sitting on Side/Bed(QC): 6 Sit to Stand (QC): 6 Rollin Roll Left to Right (QC): 6 Chair/Ust-ke-Jklcm Xfer(QC): 6 Car Transfer (QC): 6 Gait (FIM): 6 Distance: 300' Walk 10 feet (QC): 6 Walk 10ft-Uneven Surface(QC): 6 Walk 50ft with 2 Turns (QC): 6 Walk 150 ft (QC): 6 Gait Level of Assist: 6 Gait Assistive Device: FWW Stairs (FIM): 4 # of Steps: 12 1 Step (curb) (QC): 4 4 Steps (QC): 4 12 Steps (QC): 4 Stairs Level Of Assist: 4 PT Plan Treatment/Plan Treatment Plan: Continue Plan of Care Treatment Plan: Bed Mobility, Education, Functional Activity [place], Functional Strength, Group Therapy, Gait, Safety, Therapeutic Exercise, Transfers Treatment Duration: Mar 31, 2019 Frequency: At least 5 of 7 days/Wk (IRF) Estimated Hrs Per Day: 1.5 hours per day Patient and/or Family Agrees t: Yes Time/GCodes Time In: 1005 Time Out: 1010 Total Billed Treatment Time: 0 Total Billed Treatment no RX, no CHG G Codes Necessary: No FERMIN BOWLES COAL CHEMIST Mar 14, 2019 10:20
--- NOTE | 2019-03-14 10:49 | NUR ---
SEPTIC TANK SERVICER met with team to discuss patient's progress. Patient has progressed very well within the last few days, she is now MOD I with most therapy activities. OT believes patient will progress from SBA to MOD I with showering and lower body dressing, tomorrow. Team has recommended patient proceed with discharge on Thursday, 03/16. SEPTIC TANK SERVICER reviewed this recommendation with patient, she is agreeable as she feels she is now "strong enough to manage at home". Patient does inquire about the ability to have a bath aide as she would feel more comfortable with supervision initially. Patient will qualify for [facility] services, SEPTIC TANK SERVICER will seek providers with bath aide positions.
--- NOTE | 2019-03-14 10:53 | PM&R Progress Note ---
Subjective HPI/CC On Admission Date Seen by Provider: Mar 14, 2019 Time Seen by Provider: 09:00 CC: Fall with scalp laceration and loss of consciousness HPI: This is an 88yoWF clinic patient of mine for the past 15.5 years who has a h/o HTN labile and malignant type, severe scoliosis requiring narcotic pain meds and renal insufficiency who presents to IRF after DC from observation at [facility] following a fall at her house on Thursday morning. She has no recollection of the fall and she did experience LOC and suffered a significant scalp laceration which required suturing in ER and moderate to severe blood loss resulting in acute anemia of hgb 10. Patient was assumed to have become orthostatic and resulted in the fall. Her cleaning lady happened to be at the house and heard the fall and came to her immediately after it occurred and her son was called and EMS was notified. All xrays and images were without fractures. She lives at home alone with family checking in twice daily and she was independent of ADL's and ambulation with walker at times. She will return to her home with additional family support in addition to medical alert system addition. She had become more short of breath with activity since her fall and has not been using her CPAP. Subjective/Events-last exam Had a BM yesterday after Miralax. Baking soda with water helped the indigestion. Headache is 3/10 pain. Less use of Oxycodone. Not as short of breath and we will spot check oxygen level since she thinks she becomes short of breath when she is working out. Complained of right shoulder scapula pain, convinced it is a cardiac issue but she has had a very thorough work-up including echocardiogram and stress test recently and there has been no indication of any issues so will try to reassure her. Checked meds and labs. Conferred with RN. Reviewed therapy notes. Conferred with RN Reviewed therapy notes Check meds and labs Review of Systems General: Fatigue Pulmonary: Dyspnea Objective Exam Vital Signs Vital Signs Date Time Temp Pulse Resp B/P (MAP) Pulse Ox O2 Delivery O2 Flow Rate FiO2 03/14/19 18:15 97.9 76 20 142/71 (94) 98 Room Air Capillary Refill : General Appearance: No Apparent Distress, WD/WN, Chronically ill, Thin HEENT: PERRL/EOMI, Normal ENT Inspection, Pharynx Normal, Moist Mucous Membranes Neck: Full Range of Motion, Normal Inspection, Non Tender, Supple Respiratory: Chest Non Tender, Lungs Clear, Normal Breath Sounds, No Accessory Muscle Use, No Respiratory Distress, Crackles (LLL) Cardiovascular: Regular Rate, Rhythm, No Edema, No Gallop, No JVD, No Murmur Gastrointestinal: Normal Bowel Sounds, No Organomegaly, No Pulsatile Mass, Non Tender, Soft Back: Normal Inspection, No CVA Tenderness, No Vertebral Tenderness Extremity: Normal Capillary Refill, Normal Inspection, Normal Range of Motion, Non Tender, No Calf Tenderness, No Pedal Edema Neurologic/Psychiatric: Alert, Oriented x3, No Motor/Sensory Deficits, Normal Mood/Affect, 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 FIM Transfers Therapy Code Descriptions/Definitions Functional [place] Measure: 0=Not Assessed/NA 4=Minimal Assistance 1=Total Assistance 5=Supervision or Setup 2=Maximal Assistance 6=Modified [place] 3=Moderate Assistance 7=Complete [place] Therapy Quality Codes: 6 Independent with activity with or without an assistive device 5 Patient requires set up or clean up by helper. Patient completes activity by themselves 4 Supervision or touching assist (CGA). [place] provide cues , steadying assist 3 The helper provides less than half the effort to complete the activity 2 The helper provides more than half the effort to complete the activity 1 Dependent. The helper does all the effort to complete an activity 7 Patient refused to complete or attempt activity 9 The patient did not perform the activity before the current illness or injury 88 Not attempted due to Medical conditions or safety concerns Transfers (B, C, W/C) (FIM): 5 Scootin Rollin Roll Left to Right (QC): 6 Supine to/from Sit: 6 Sit to/from Stand: 5 Sit to Lying (QC): 6 Sit to Stand (QC): 5 Chair/Yer-af-Lvlnm Xfer(QC): 4 Bed to/from Chair: 5 Car Transfer (QC): 6 Gait Training Does the Patient Walk?: Yes Gait (FIM): 5 Distance (FIM): 3=150 ft Distance: 200' x 2 Walk 10 feet (QC): 5 Walk 50 ft with 2 Turns(QC): 5 Walk 150 ft (QC): 5 Walking 10ft/uneven surface-QC: 4 Gait Level of Assist: 5 Gait Persons Needed: 1 Gait Assistive Device: FWW Stair Training Stairs (FIM): 2 #of Steps: 4 1 Step (curb) (QC): 4 4 Steps (QC): 4 Level of Assist: 4 Mental Status/Objective Comprehension: 6 Expression: 7 Social Interaction: 7 Problem Solvin Memory: 6 ADL-Treatment Feedin Eating (QC): 6 Groomin Bathin Upper Extremity Dressin Upper Body Dressing (QC): 5 Lower Extremity Dressin Lower Body Dressing (QC): 4 On/Off Footwear (QC): 5 Toiletin Toileting Hygiene (QC): 4 Toilet/Commode Transfer: 5 Toilet Transfer (QC): 4 Shower: 5 Assessment/Plan Assessment and Plan Assess & Plan/Chief Complaint Assessment: Fall with acute LOC Scalp laceration Anemia from acute blood loss HTN labile and malignant type CRI Hypokalemia HLP ANA MARIA Asthma Plan: Home meds IRF protocol HTN monitoring Fall prevention Miralax DC home at [place] with additional family support and alarm system (1) Loss of consciousness (2) Scoliosis (3) COPD (chronic obstructive pulmonary disease) (4) Hypokalemia (5) Hyperlipidemia (6) Narcotic dependence (7) Renal insufficiency (8) Knee pain (9) Diverticula of colon (10) Hypertension (11) Asthma (12) B12 deficiency (13) History of GI bleed (14) History of rheumatic fever as a child (15) ANA MARIA on CPAP (16) Anemia due to acute blood loss (17) Fall (18) Scalp laceration LIV STONE DO Mar 14, 2019 10:53
--- NOTE | 2019-03-14 11:14 | Physical Therapy Daily Note ---
PT Daily Note-Current Subjective Patient is very tearful and emotional on this date and reluctant to participate with therapy. This PT encouraged patient and patient agrees to therapy. Pain Numeric Pain Scale: 2 Location: Right Location Body Site: Shoulder Pain Description: Ache, Stabbing Mental Status Patient Orientation: Normal For Age Transfers Therapy Code Descriptions/Definitions Functional [place] Measure: 0=Not Assessed/NA 4=Minimal Assistance 1=Total Assistance 5=Supervision or Setup 2=Maximal Assistance 6=Modified [place] 3=Moderate Assistance 7=Complete [place] Therapy Quality Codes: 6 Independent with activity with or without an assistive device 5 Patient requires set up or clean up by helper. Patient completes activity by themselves 4 Supervision or touching assist (CGA). [place] provide cues , steadying assist 3 The helper provides less than half the effort to complete the activity 2 The helper provides more than half the effort to complete the activity 1 Dependent. The helper does all the effort to complete an activity 7 Patient refused to complete or attempt activity 9 The patient did not perform the activity before the current illness or injury 88 Not attempted due to Medical conditions or safety concerns Transfers (B, C, W/C) (FIM): 7 Scootin Sit to/from Stand: 7 Sit to Stand (QC): 6 Gait Training Does the Patient Walk?: Yes Gait (FIM): 6 Distance (FIM): 3=150 ft Distance: 800' x 2 Walk 10 feet (QC): 6 Walk 50 ft with 2 Turns(QC): 6 Walk 150 ft (QC): 6 Walking 10ft/uneven surface-QC: 6 (in court yard on concrete and over bridge, ramp, etc) Gait Level of Assist: 6 Gait Assistive Device: FWW NBOS, short gait sequence/safe and functional Exercises Seated Therapy Exercises: Ankle pumps, Long arc quads, Hip flexion Seated Reps: 15 (3 sets) Assessment Patient tolerated treatment well and is up in recliner with needs met. PT instructed patient to participate with OT and other therapist to ensure safe return to home at maximum LOF and patient reports she will comply. PT Short Term Goals Short Term Goals Time Frame: Mar 17, 2019 Transfers (B,C,W/C) (FIM): 6 Gait (FIM): 5 Gait Distance Comment: 200' Gait Level of Assist: 5 Gait Assistive Device: FWW PT Long-Term Goals Long-Term Goals PT Secondary English Teacher Goals Time Frame: Mar 31, 2019 Transfers (B,C,W/C) (FIM): 6 Sit to Lying (QC): 6 Lying-Sitting on Side/Bed(QC): 6 Sit to Stand (QC): 6 Rollin Roll Left to Right (QC): 6 Chair/Tls-fw-Cqtyj Xfer(QC): 6 Car Transfer (QC): 6 Gait (FIM): 6 Distance: 300' Walk 10 feet (QC): 6 Walk 10ft-Uneven Surface(QC): 6 Walk 50ft with 2 Turns (QC): 6 Walk 150 ft (QC): 6 Gait Level of Assist: 6 Gait Assistive Device: FWW Stairs (FIM): 4 # of Steps: 12 1 Step (curb) (QC): 4 4 Steps (QC): 4 12 Steps (QC): 4 Stairs Level Of Assist: 4 PT Plan Treatment/Plan Treatment Plan: Continue Plan of Care Treatment Plan: Bed Mobility, Education, Functional Activity [place], Functional Strength, Group Therapy, Gait, Safety, Therapeutic Exercise, Transfers Treatment Duration: Mar 31, 2019 Frequency: At least 5 of 7 days/Wk (IRF) Estimated Hrs Per Day: 1.5 hours per day Patient and/or Family Agrees t: Yes Time/GCodes Time In: 1015 Time Out: 1100 Total Billed Treatment Time: 45 Total Billed Treatment 1 visit FA x 2 31 min EX 14 min FATUMA SABILLON PT Mar 14, 2019 11:14
--- NOTE | 2019-03-14 13:35 | Physical Therapy Daily Note ---
PT Daily Note-Current Subjective Patient agrees to PT. Mental Status Patient Orientation: Normal For Age Transfers Therapy Code Descriptions/Definitions Functional [place] Measure: 0=Not Assessed/NA 4=Minimal Assistance 1=Total Assistance 5=Supervision or Setup 2=Maximal Assistance 6=Modified [place] 3=Moderate Assistance 7=Complete [place] Therapy Quality Codes: 6 Independent with activity with or without an assistive device 5 Patient requires set up or clean up by helper. Patient completes activity by themselves 4 Supervision or touching assist (CGA). [place] provide cues , steadying assist 3 The helper provides less than half the effort to complete the activity 2 The helper provides more than half the effort to complete the activity 1 Dependent. The helper does all the effort to complete an activity 7 Patient refused to complete or attempt activity 9 The patient did not perform the activity before the current illness or injury 88 Not attempted due to Medical conditions or safety concerns Transfers (B, C, W/C) (FIM): 7 Scootin Sit to/from Stand: 7 Sit to Stand (QC): 6 Car Transfer (QC): 6 Gait Training Does the Patient Walk?: Yes Gait (FIM): 6 Distance (FIM): 3=150 ft Distance: 150' x 2 Walk 10 feet (QC): 6 Walk 50 ft with 2 Turns(QC): 6 Walk 150 ft (QC): 6 Gait Level of Assist: 6 Gait Assistive Device: FWW slow and steady Stair Training Stair Training: Handrails/: 2 handrails Stairs (FIM): 6 #of Steps: 12 1 Step (curb) (QC): 6 4 Steps (QC): 6 12 Steps (QC): 6 Stairs: Pattern: Step to Level of Assist: 6 Exercises Seated Therapy Exercises: Ankle pumps, Long arc quads, Hip flexion Seated Reps: 15 (2 sets bilaterally) NuStep Minutes: 20 NuStep Workload: 3 (to improve strength and mobility) Assessment Patient tolerated treatment well and is up in recliner with needs met. Patient has been instructed to be up ad tarik in room. RN notified. PT Short Term Goals Short Term Goals Time Frame: Mar 17, 2019 Transfers (B,C,W/C) (FIM): 6 Gait (FIM): 5 Gait Distance Comment: 200' Gait Level of Assist: 5 Gait Assistive Device: FWW PT Ballet Master/Mistress Goals Ballet Master/Mistress Goals PT Usp Goals Time Frame: Mar 31, 2019 Transfers (B,C,W/C) (FIM): 6 Sit to Lying (QC): 6 Lying-Sitting on Side/Bed(QC): 6 Sit to Stand (QC): 6 Rollin Roll Left to Right (QC): 6 Chair/Kyz-dv-Eqvpi Xfer(QC): 6 Car Transfer (QC): 6 Gait (FIM): 6 Distance: 300' Walk 10 feet (QC): 6 Walk 10ft-Uneven Surface(QC): 6 Walk 50ft with 2 Turns (QC): 6 Walk 150 ft (QC): 6 Gait Level of Assist: 6 Gait Assistive Device: FWW Stairs (FIM): 4 # of Steps: 12 1 Step (curb) (QC): 4 4 Steps (QC): 4 12 Steps (QC): 4 Stairs Level Of Assist: 4 PT Plan Treatment/Plan Treatment Plan: Continue Plan of Care Treatment Plan: Bed Mobility, Education, Functional Activity [place], Functional Strength, Group Therapy, Gait, Safety, Therapeutic Exercise, Transfers Treatment Duration: Mar 31, 2019 Frequency: At least 5 of 7 days/Wk (IRF) Estimated Hrs Per Day: 1.5 hours per day Patient and/or Family Agrees t: Yes Time/GCodes Time In: 1245 Time Out: 1330 Total Billed Treatment Time: 45 Total Billed Treatment 1 visit EX x 2 30 min FA 15 min FATUMA SABILLON PT Mar 14, 2019 13:35
--- NOTE | 2019-03-14 14:55 | Occupational Ther Daily Note ---
OT Current Status-Daily Note Subjective No pain reported. Appearance Pt. is up in chair. Agrees to shower. Mental Status/Objective Patient Orientation: Person, Place, Time, Situation Therapy Code Descriptions/Definitions Functional [place] Measure: 0=Not Assessed/NA 4=Minimal Assistance 1=Total Assistance 5=Supervision or Setup 2=Maximal Assistance 6=Modified [place] 3=Moderate Assistance 7=Complete [place] ADL-Treatment Therapy Code Descriptions/Definitions Functional [place] Measure: 0=Not Assessed/NA 4=Minimal Assistance 1=Total Assistance 5=Supervision or Setup 2=Maximal Assistance 6=Modified [place] 3=Moderate Assistance 7=Complete [place] Therapy Quality Codes: 6 Independent with activity with or without an assistive device 5 Patient requires set up or clean up by helper. Patient completes activity by themselves 4 Supervision or touching assist (CGA). [place] provide cues , steadying assist 3 The helper provides less than half the effort to complete the activity 2 The helper provides more than half the effort to complete the activity 1 Dependent. The helper does all the effort to complete an activity 7 Patient refused to complete or attempt activity 9 The patient did not perform the activity before the current illness or injury 88 Not attempted due to Medical conditions or safety concerns Grooming (FIM): 6 Oral Hygiene (QC): 5 Bathing (FIM): 5 Shower/Bathe Self (QC): 4 Upper Body (FIM): 5 Upper Body Dressing (QC): 4 Lower Body Dressing (FIM): 5 Lower Body Dressing (QC): 4 On/Off Footwear (QC): 4 Toileting (FIM): 6 Toileting Hygiene (QC): 6 Transfers (B, C, W/C) (FIM): 6 Toilet/Commode Transfer (FIM): 6 Toilet Transfer (QC): 6 Shower Transfer(FIM): 5 Other Treatment Pt able to shower/dress with SBA. Pt. made up ad tarik in room today, as pt. was getting up safely with walker on her own. PT and nursing okay with this. Pt. states that she feels safe and balanced. After shower, pt. transferred to chair at sink and completed all grooming tasks. Pt. reports that she feels that she will be safer at night with assistance as needed. OT encourages safety and encourages her to call for assist. All needs met in room. Education OT Patient Education: Correct positioning, Modified ADL techniques, Progress toward Goal/Update tx plan, Purpose of tx/functional activities, Reviewed precautions, Rehab process, Transfer techniques Teaching Recipient: Patient Teaching Methods: Demonstration, Discussion Response to Teaching: Verbalize Understanding, Return Demonstration OT Short Term Goals Short Term Goals Transfers (B,C,W/C) (FIM): 6 1=Demonstrate adherence to instructed precautions during ADL tasks. 2=Patient will verbalize/demonstrate understanding of assistive devices/modifications for ADL. 3=Patient will improve strength/tolerance for activity to enable patient to perform ADL's. OT Pool Finisher Goals Pool Finisher Goals Time Frame: Mar 24, 2019 Eating (FIM): 6 Eating (QC): 6 Groomin Oral Hygiene (QC): 6 Bathing(FIM): 5 Shower/Bathe Self (QC): 5 Upper Body Dressing(FIM): 6 Upper Body Dressing (QC): 6 Lower Body Dressing(FIM): 6 Lower Body Dressing (QC): 6 On/Off Footwear (QC): 6 Toileting(FIM): 6 Toileting Hygiene (QC): 6 Transfers (B,C,W/C) (FIM): 6 Toilet/Commode Transfer(FIM): 6 Toilet/Commode Transfer (QC): 6 Shower Transfer(FIM): 5 1=Demonstrate adherence to instructed precautions during ADL tasks. 2=Patient will verbalize/demonstrate understanding of assistive devices/modifications for ADL. 3=Patient will improve strength/tolerance for activity to enable patient to perform ADL's. OT Education/Plan Problem List/Assessment Assessment: Decreased Activ Tolerance, Decreased UE Strength, Impaired I ADL's Discharge Recommendations Plan/Recommendations: Continue POC Therapy D/C Recommendations: Home w/ Family Support, Occupational Therapy Home Care Treatment Plan/Plan of Care Treatment,Training & Education: Yes Patient would benefit from OT for education, treatment and training to promote independence in ADL's, mobility, safety and/or upper extremity function for ADL's. Plan of Care: ADL Retraining, Functional Mobility, Group Exercise/Act as Ind, UE Funct Exercise/Act Treatment Duration: Mar 24, 2019 Frequency: At least 5 of 7 days/Wk (IRF) Estimated Hrs Per Day: 1.5 hours per day Agreement: Yes Rehab Potential: Good Time/GCodes Start Time: 11:00 Stop Time: 12:00 Total Time Billed (hr/min): 60 Billed Treatment Time 1, ADL x 60minutes WILFREDO ORTEGA OT Mar 14, 2019 14:55
--- NOTE | 2019-03-14 14:59 | Occupational Ther Daily Note ---
OT Current Status-Daily Note Subjective No pain reported. Appearance Pt. up in chair. Agrees to work with OT. Mental Status/Objective Patient Orientation: Person, Place, Time, Situation Therapy Code Descriptions/Definitions Functional [place] Measure: 0=Not Assessed/NA 4=Minimal Assistance 1=Total Assistance 5=Supervision or Setup 2=Maximal Assistance 6=Modified [place] 3=Moderate Assistance 7=Complete [place] ADL-Treatment Therapy Code Descriptions/Definitions Functional [place] Measure: 0=Not Assessed/NA 4=Minimal Assistance 1=Total Assistance 5=Supervision or Setup 2=Maximal Assistance 6=Modified [place] 3=Moderate Assistance 7=Complete [place] Therapy Quality Codes: 6 Independent with activity with or without an assistive device 5 Patient requires set up or clean up by helper. Patient completes activity by themselves 4 Supervision or touching assist (CGA). [place] provide cues , steadying assist 3 The helper provides less than half the effort to complete the activity 2 The helper provides more than half the effort to complete the activity 1 Dependent. The helper does all the effort to complete an activity 7 Patient refused to complete or attempt activity 9 The patient did not perform the activity before the current illness or injury 88 Not attempted due to Medical conditions or safety concerns Transfers (B, C, W/C) (FIM): 6 Other Treatment Pt. ambulated to therapy gym with walker with Mod I. Completed 17 minutes on arm bike to increase overall strength. Pt. tolerated this well. Spoke with pt. regarding home safety and need for any particular equipment. Pt. states that she uses her rolling walker at home, and transports items on the seat of it vs. getting a walker basket for a two wheeled walker. Pt. verbalizes that she believes that she has everything else in place. OT encourages her to think about anything specific that is of concern to her at home, or that she needs to practice in this setting. All needs met back in room. Education OT Patient Education: Correct positioning, Exercise program, Progress toward Goal/Update tx plan, Purpose of tx/functional activities, Reviewed precautions, Rehab process, Transfer techniques Teaching Recipient: Patient Teaching Methods: Demonstration, Discussion Response to Teaching: Verbalize Understanding, Return Demonstration OT Short Term Goals Short Term Goals Transfers (B,C,W/C) (FIM): 6 1=Demonstrate adherence to instructed precautions during ADL tasks. 2=Patient will verbalize/demonstrate understanding of assistive devices/renita fications for ADL. 3=Patient will improve strength/tolerance for activity to enable patient to perform ADL's. OT Personal Attendant Goals [place] Goals Time Frame: Mar 24, 2019 Eating (FIM): 6 Eating (QC): 6 Groomin Oral Hygiene (QC): 6 Bathing(FIM): 5 Shower/Bathe Self (QC): 5 Upper Body Dressing(FIM): 6 Upper Body Dressing (QC): 6 Lower Body Dressing(FIM): 6 Lower Body Dressing (QC): 6 On/Off Footwear (QC): 6 Toileting(FIM): 6 Toileting Hygiene (QC): 6 Transfers (B,C,W/C) (FIM): 6 Toilet/Commode Transfer(FIM): 6 Toilet/Commode Transfer (QC): 6 Shower Transfer(FIM): 5 1=Demonstrate adherence to instructed precautions during ADL tasks. 2=Patient will verbalize/demonstrate understanding of assistive devices/modifications for ADL. 3=Patient will improve strength/tolerance for activity to enable patient to perform ADL's. OT Education/Plan Problem List/Assessment Assessment: Decreased Activ Tolerance Discharge Recommendations Plan/Recommendations: Continue POC Therapy D/C Recommendations: Home w/ Family Support, Occupational Therapy Home Care Treatment Plan/Plan of Care Treatment,Training & Education: Yes Patient would benefit from OT for education, treatment and training to promote independence in ADL's, mobility, safety and/or upper extremity function for ADL's. Plan of Care: ADL Retraining, Functional Mobility, Group Exercise/Act as Ind, UE Funct Exercise/Act Treatment Duration: Mar 24, 2019 Frequency: At least 5 of 7 days/Wk (IRF) Estimated Hrs Per Day: 1.5 hours per day Agreement: Yes Rehab Potential: Good Time/GCodes Start Time: 14:00 Stop Time: 14:30 Total Time Billed (hr/min): 30 Billed Treatment Time 1, Ex x 2 WILFREDO ORTEGA OT Mar 14, 2019 14:59
[2019-03-14] MEDS: POLYETHYLENE GLYCOL 17 GM (MIRALAX) PACK PO PRN (17:31)
[2019-03-14 18:15] VITALS: BP 142/71
[2019-03-15] MEDS: KCL 10 MEQ TAB (MICRO K) PO SCH (06:00)
[2019-03-15 06:07] VITALS: BP 120/63
[2019-03-15 06:16] LABS: BASOPHILS # (AUTO) 0.1 10^3/uL (0.0-0.1); BASOPHILS % (AUTO) 1 % (0-10); EOSINOPHILS # (AUTO) 0.2 10^3/uL (0.0-0.3); EOSINOPHILS % (AUTO) 3 % (0-10); HEMATOCRIT 39 % (35-52); HEMOGLOBIN 12.4 G/DL (11.5-16.0); LYMPHOCYTES % (AUTO) 46 % (12-44); MEAN CORPUSCULAR HEMOGLOBIN 32 PG (25-34); MEAN CORPUSCULAR HGB CONC 32 G/DL (32-36); MEAN CORPUSCULAR VOLUME 99 FL (80-99); MEAN PLATELET VOLUME 10.3 FL (7.4-10.4); MONOCYTES % (AUTO) 11 % (0-12); NEUTROPHILS # (AUTO) 3.5 X 10^3 (1.8-7.8); NEUTROPHILS % (AUTO) 40 % (42-75); PLATELET COUNT 246 10^3/uL (130-400); RED CELL DISTRIBUTION WIDTH 13.6 % (10.0-14.5); WHITE BLOOD COUNT 8.7 10^3/uL (4.3-11.0)
[2019-03-15 06:34] LABS: ALBUMIN 4.1 GM/DL (3.2-4.5); BILIRUBIN,TOTAL 0.5 MG/DL (0.1-1.0); CALCIUM 10.4 MG/DL (8.5-10.1); CREATININE SERUM 1.16 MG/DL (0.60-1.30); POTASSIUM 3.6 MMOL/L (3.6-5.0); TOTAL PROTEIN 7.2 GM/DL (6.4-8.2)
[2019-03-15 08:00] VITALS: BP 121/65
--- NOTE | 2019-03-15 08:00 | NUR ---
PATIENT VERY PLEASED WITH HOW WELL BP IS DOING. READING NOW IS 121/65. REQUEST FOR DIETARY CONSULT FOR LOW SODIUM DIET. CONSULT PUT IN COMPUTER AND MESSAGE LEFT FOR DOLORES SILVEIRAICIAN.
--- NOTE | 2019-03-15 09:23 | Occupational Ther Daily Note ---
OT Current Status-Daily Note Subjective Pt sitting in chair, agrees to therapy. Pt reports 7/10 chronic pain in back and hips. Mental Status/Objective Therapy Code Descriptions/Definitions Functional [place] Measure: 0=Not Assessed/NA 4=Minimal Assistance 1=Total Assistance 5=Supervision or Setup 2=Maximal Assistance 6=Modified [place] 3=Moderate Assistance 7=Complete [place] ADL-Treatment Pt sit to stand without assist. Retrieved clothing from closet with modified independence using FWW for balance. Gait to restroom with FWW. Transfer to toilet with modified independence. Pt able to complete toileting hygiene and clothing management with modified independence. Transfer to shower with modified independence using grab bar. [place] clothing without assist. Pt completed bathing using hand held shower. Able to wash all areas without assist. Don pullover shirt with modified independence. Pt donned underwear, pants, and socks with modified independence. Stood at sink to complete grooming tasks with modified independence. Occasional rest breaks throughout ADLs. Therapy Code Descriptions/Definitions Functional [place] Measure: 0=Not Assessed/NA 4=Minimal Assistance 1=Total Assistance 5=Supervision or Setup 2=Maximal Assistance 6=Modified [place] 3=Moderate Assistance 7=Complete [place] Therapy Quality Codes: 6 Independent with activity with or without an assistive device 5 Patient requires set up or clean up by helper. Patient completes activity by themselves 4 Supervision or touching assist (CGA). [place] provide cues , steadying assist 3 The helper provides less than half the effort to complete the activity 2 The helper provides more than half the effort to complete the activity 1 Dependent. The helper does all the effort to complete an activity 7 Patient refused to complete or attempt activity 9 The patient did not perform the activity before the current illness or injury 88 Not attempted due to Medical conditions or safety concerns Eating (FIM): 7 (pt reports feeding self without assist) Eating (QC): 6 Grooming (FIM): 6 Oral Hygiene (QC): 6 Bathing (FIM): 6 Shower/Bathe Self (QC): 6 Upper Body (FIM): 6 Upper Body Dressing (QC): 6 Lower Body Dressing (FIM): 6 Lower Body Dressing (QC): 6 On/Off Footwear (QC): 6 Toileting (FIM): 6 Toileting Hygiene (QC): 6 Toilet/Commode Transfer (FIM): 6 Toilet Transfer (QC): 6 Shower Transfer(FIM): 6 Other Treatment Gait to therapy gym with FWW, no LOB noted. Pt completed arm bike activity [id number] to increase overall strength and activity tolerance needed for ADLs and transfers. Pt completed task with minimal resistance and slow pace. Occasional rest break taken secondary to decreased activity tolerance. Pt returned to room and transferred to chair with modified independence. Plan is for pt to d/c home tomorrow. Discussed home and ADL safety. Pt states understanding of education and has no questions or concerns at this time. Pt sitting in chair with needs met after session. Education OT Patient Education: Safety issues Teaching Recipient: Patient Teaching Methods: Discussion Response to Teaching: Verbalize Understanding OT Short Term Goals Short Term Goals Transfers (B,C,W/C) (FIM): 6 1=Demonstrate adherence to instructed precautions during ADL tasks. 2=Patient will verbalize/demonstrate understanding of assistive devices/modifications for ADL. 3=Patient will improve strength/tolerance for activity to enable patient to perform ADL's. OT Pocketed Spring Assembler Goals Assisted Goals Time Frame: Mar 24, 2019 Eating (FIM): 6 (met) Eating (QC): 6 (6-MET) Groomin (met 03/15/19) Oral Hygiene (QC): 6 (6-MET) Bathing(FIM): 5 (exceeded) Shower/Bathe Self (QC): 5 (6-exceeded) Upper Body Dressing(FIM): 6 (met 03/15/19) Upper Body Dressing (QC): 6 (6-MET) Lower Body Dressing(FIM): 6 (met 03/15/19) Lower Body Dressing (QC): 6 (6-MET) On/Off Footwear (QC): 6 (6-MET) Toileting(FIM): 6 (met 03/15/19) Toileting Hygiene (QC): 6 (6-MET) Transfers (B,C,W/C) (FIM): 6 Toilet/Commode Transfer(FIM): 6 (met 03/15/19) Toilet/Commode Transfer (QC): 6 (6-MET) Shower Transfer(FIM): 5 (exceeded) 1=Demonstrate adherence to instructed precautions during ADL tasks. 2=Patient will verbalize/demonstrate understanding of assistive devices/modifications for ADL. 3=Patient will improve strength/tolerance for activity to enable patient to perform ADL's. OT Education/Plan Discharge Recommendations Plan/Recommendations: Continue POC Treatment Plan/Plan of Care Patient would benefit from OT for education, treatment and training to promote independence in ADL's, mobility, safety and/or upper extremity function for ADL's. Plan of Care: ADL Retraining, Functional Mobility, Group Exercise/Act as Ind, UE Funct Exercise/Act Treatment Duration: Mar 24, 2019 Frequency: At least 5 of 7 days/Wk (IRF) Estimated Hrs Per Day: 1.5 hours per day Agreement: Yes Rehab Potential: Good Time/GCodes Start Time: 08:00 Stop Time: 09:15 Total Time Billed (hr/min): 75 Billed Treatment Time 1 visit, ADLx4(60minutes), EX(15minutes) SHERWIN NÚÑEZ OT Mar 15, 2019 09:23
[2019-03-15] MEDS: VITAMIN D3 1,000 UNITS (CHOLECALCIFEROL) TABLET PO SCH (09:29)
[2019-03-15] MEDS: SERTRALINE 100 MG (ZOLOFT) TAB PO SCH ×2 (09:30→20:12)
[2019-03-15] MEDS: HYDROCHLOROTHIAZIDE 25 MG (HCTZ) TAB PO SCH ×2 (09:30→20:11)
[2019-03-15] MEDS: lisINopril 20 MG (PRINIVIL) TABLET PO SCH ×2 (09:30→20:11)
--- NOTE | 2019-03-15 09:30 | NUR ---
COMPLAIN NASAL DRIPPING AND REQUESTING SPRAY OR MEDICATION FOR IT. DR. STONE NOTIFIED.
--- NOTE | 2019-03-15 10:12 | PM&R Progress Note ---
Subjective HPI/CC On Admission Date Seen by Provider: Mar 15, 2019 Time Seen by Provider: 08:30 CC: Fall with scalp laceration and loss of consciousness HPI: This is an 88yoWF clinic patient of mine for the past 15.5 years who has a h/o HTN labile and malignant type, severe scoliosis requiring narcotic pain meds and renal insufficiency who presents to IRF after DC from observation at [facility] following a fall at her house on Thursday morning. She has no recollection of the fall and she did experience LOC and suffered a significant scalp laceration which required suturing in ER and moderate to severe blood loss resulting in acute anemia of hgb 10. Patient was assumed to have become orthostatic and resulted in the fall. Her cleaning lady happened to be at the house and heard the fall and came to her immediately after it occurred and her son was called and EMS was notified. All xrays and images were without fractures. She lives at home alone with family checking in twice daily and she was independent of ADL's and ambulation with walker at times. She will return to her home with additional family support in addition to medical alert system addition. She had become more short of breath with activity since her fall and has not been using her CPAP. Subjective/Events-last exam Having a runny nose so will initiate Claritin. Hgb stable at 12.4. BP 121/65 with salt restriction. Shafting Worker consult will be requested per Pt request. Will DC sutures in her scalp. Oxycodone is used for chronic arthritis pain and scoliosis. Headache is improved. Conferred with RN Reviewed therapy notes Check meds and labs Review of Systems General: Fatigue HEENT: Post Nasal Drip Neurological: Incoordination Objective Exam Vital Signs Vital Signs Date Time Temp Pulse Resp B/P (MAP) Pulse Ox O2 Delivery O2 Flow Rate FiO2 03/15/19 19:08 92 Room Air 03/15/19 17:07 98.4 77 18 142/74 (96) Capillary Refill : General Appearance: No Apparent Distress, WD/WN, Chronically ill, Thin HEENT: PERRL/EOMI, Normal ENT Inspection, Pharynx Normal, Moist Mucous Membranes Neck: Full Range of Motion, Normal Inspection, Non Tender, Supple Respiratory: Chest Non Tender, Lungs Clear, Normal Breath Sounds, No Accessory Muscle Use, No Respiratory Distress, Crackles (LLL) Cardiovascular: Regular Rate, Rhythm, No Edema, No Gallop, No JVD, No Murmur Gastrointestinal: Normal Bowel Sounds, No Organomegaly, No Pulsatile Mass, Non Tender, Soft Back: Normal Inspection, No CVA Tenderness, No Vertebral Tenderness Extremity: Normal Capillary Refill, Normal Inspection, Normal Range of Motion, Non Tender, No Calf Tenderness, No Pedal Edema Neurologic/Psychiatric: Alert, Oriented x3, No Motor/Sensory Deficits, Normal Mood/Affect, nematologist II-XII Norm as Tested, Motor Weakness (generalized weakness legs) Skin: Normal Color, Warm/Dry Lymphatic: No Adenopathy Results/Procedures Lab Laboratory Tests 03/15/19 06:08 Patient resulted labs reviewed. FIM Transfers Therapy Code Descriptions/Definitions Functional [place] Measure: 0=Not Assessed/NA 4=Minimal Assistance 1=Total Assistance 5=Supervision or Setup 2=Maximal Assistance 6=Modified [place] 3=Moderate Assistance 7=Complete [place] Therapy Quality Codes: 6 Independent with activity with or without an assistive device 5 Patient requires set up or clean up by helper. Patient completes activity by themselves 4 Supervision or touching assist (CGA). [place] provide cues , steadying allyn t 3 The helper provides less than half the effort to complete the activity 2 The helper provides more than half the effort to complete the activity 1 Dependent. The helper does all the effort to complete an activity 7 Patient refused to complete or attempt activity 9 The patient did not perform the activity before the current illness or injury 88 Not attempted due to Medical conditions or safety concerns Transfers (B, C, W/C) (FIM): 6 Scootin Rollin Roll Left to Right (QC): 6 Supine to/from Sit: 6 Sit to/from Stand: 7 Sit to Lying (QC): 6 Sit to Stand (QC): 6 Chair/[id number] Xfer(QC): 4 Bed to/from Chair: 5 Car Transfer (QC): 6 Gait Training Does the Patient Walk?: Yes Gait (FIM): 6 Distance (FIM): 3=150 ft Distance: 150' x 2 Walk 10 feet (QC): 6 Walk 50 ft with 2 Turns(QC): 6 Walk 150 ft (QC): 6 Walking 10ft/uneven surface-QC: 6 (in court yard on concrete and over bridge, ramp, etc) Gait Level of Assist: 6 Gait Persons Needed: 1 Gait Assistive Device: FWW Stair Training Stair Training: Handrails/: 2 handrails Stairs (FIM): 6 #of Steps: 12 1 Step (curb) (QC): 6 4 Steps (QC): 6 12 Steps (QC): 6 Stairs: Pattern: Step to Level of Assist: 6 Mental Status/Objective Comprehension: 6 Expression: 7 Social Interaction: 7 Problem Solvin Memory: 6 ADL-Treatment Feedin (pt reports feeding self without assist) Eating (QC): 6 Groomin Oral Hygiene (QC): 6 Bathin Shower/Bathe Self (QC): 6 Upper Extremity Dressin Upper Body Dressing (QC): 6 Lower Extremity Dressin Lower Body Dressing (QC): 6 On/Off Footwear (QC): 6 Toiletin Toileting Hygiene (QC): 6 Toilet/Commode Transfer: 6 Toilet Transfer (QC): 6 Shower: 6 Assessment/Plan Assessment and Plan Assess & Plan/Chief Complaint Assessment: Fall with acute LOC Scalp laceration Anemia from acute blood loss HTN labile and malignant type CRI Hypokalemia HLP ANA MARIA Asthma PND ordered Claritin Plan: Home meds IRF protocol HTN monitoring Fall prevention Miralax DC home at [place] with additional family support and alarm system scheduled for tomorrow (1) Loss of consciousness (2) Scoliosis (3) COPD (chronic obstructive pulmonary disease) (4) Hypokalemia (5) Hyperlipidemia (6) Narcotic dependence (7) Renal insufficiency (8) Knee pain (9) Diverticula of colon (10) Hypertension (11) Asthma (12) B12 deficiency (13) History of GI bleed (14) History of rheumatic fever as a child (15) ANA MARIA on CPAP (16) Anemia due to acute blood loss (17) Fall (18) Scalp laceration LIV STONE DO Mar 15, 2019 10:12
[2019-03-15] MEDS ORDERED: LORATADINE (CLARITIN) 10 MG TAB PO NR (10:15)
--- NOTE | 2019-03-15 10:44 | Speech Therapy Daily Note ---
Speech Daily Progress Note Subjective Date Seen by Provider: Mar 15, 2019 Time Seen by Provider: 00:30 The patient was resting in her recliner when I entered her room. Objective The patient completed problem solving tasks related to her daily needs at 85% with minimal cues. Assessment Assessment Current Status: Good Progress Treatment Plan Discontinue ST, Goals Met Communication Comprehension: 7 Expression: 7 Social Cognition Social Interaction: 7 Problem Solvin Memory: 7 Speech Short Term Goals Short Term Goals Short Term Goals Patient will demonstrate problem solving and memory for functional tasks with 80% accuracy with minimal cues. Met Speech Welt Rougher Goals Fdc Goals Patient will improve problem solving and memory skills necessary for daily living tasks with minimal assist. Met Speech-Plan Patient/Family Goals Patient/Family Goals: The patient plans on returning home with family support post rehab. Treatment Plan Speech Therapy Treatment Plan: Discontinue ST, Goals Met The patient has met all of her ST goals. Treatment Duration: Mar 16, 2019 Frequency: 5 times per week Estimated Hrs Per Day: .5 hour per day Rehab Potential: Good Barriers to Learning: None identified at this time. Pt/Family Agrees to Plan: Yes Safety Risks/Education Teaching Recipient: Patient Teaching Methods: Discussion Response to Teaching: Verbalize Understanding Education Topics Provided: Continued safety upon her return home. Time Speech Therapy Time In: 09:30 Speech Therapy Time Out: 10:00 Total Billed Time: 30 Billed Treatment Time 1TIRSO BETHAN[address] ST Mar 15, 2019 10:44
--- NOTE | 2019-03-15 12:11 | Physical Therapy Daily Note ---
PT Daily Note-Current Subjective Pt sitting in recliner upon arrival. Pt agrees to PT. Pain Numeric Pain Scale: 5-Moderate Pain Location: Right, Left Location Body Site: Shoulder Pain Description: Ache, Tightness Mental Status Patient Orientation: Person, Place, Time, Situation Transfers Therapy Code Descriptions/Definitions Functional [place] Measure: 0=Not Assessed/NA 4=Minimal Assistance 1=Total Assistance 5=Supervision or Setup 2=Maximal Assistance 6=Modified [place] 3=Moderate Assistance 7=Complete [place] Therapy Quality Codes: 6 Independent with activity with or without an assistive device 5 Patient requires set up or clean up by helper. Patient completes activity by themselves 4 Supervision or touching assist (CGA). [place] provide cues , steadying assist 3 The helper provides less than half the effort to complete the activity 2 The helper provides more than half the effort to complete the activity 1 Dependent. The helper does all the effort to complete an activity 7 Patient refused to complete or attempt activity 9 The patient did not perform the activity before the current illness or injury 88 Not attempted due to Medical conditions or safety concerns Transfers (B, C, W/C) (FIM): 6 Scootin Rollin Roll Left to Right (QC): 7 Supine to/from Sit: 7 Sit to/from Stand: 6 Sit to Lying (QC): 6 Sit to Stand (QC): 6 Chair/Xtf-wg-Wuuyz Xfer(QC): 6 Bed to/from Chair: 6 Car Transfer (QC): 6 Weight Bearing Full Weight Bearing Full Weight Bearing Gait Training Does the Patient Walk?: Yes Gait (FIM): 6 Distance (FIM): 3=150 ft Distance: 180' Walk 10 feet (QC): 6 Walk 50 ft with 2 Turns(QC): 6 Walk 150 ft (QC): 6 Walking 10ft/uneven surface-QC: 6 Gait Level of Assist: 6 Gait Persons Needed: 1 Gait Assistive Device: FWW Wheelchair Training Does the Pt Use a Wheelchair?: No Stair Training Stair Training: Handrails/: 2 handrails Stairs (FIM): 4 #of Steps: 8 1 Step (curb) (QC): 6 4 Steps (QC): 6 12 Steps (QC): 88 Stairs: Pattern: Step to Level of Assist: 6 Pt reports not feeling as though she is safe to complete a third set of steps so she stopped at 8 steps. Balance Picking up an Object (QC): 88 Special Test Comments This is not attempted due to balance. Pt reports having a manager ecommerce at home. Exercises NuStep Minutes: 10 NuStep Workload: 5 Treatments Pt completes FIM scoring items including bed mobility, transfers including car transfer, ambulation including across varying surface, and stairs. Pt returns to room to rest in recliner at end of tx with all needs met, call light in hand. Assessment Current Status: Good Progress Pt tolerated tx well and looks forward to D/C tomorrow. PT Short Term Goals Short Term Goals Time Frame: Mar 17, 2019 Transfers (B,C,W/C) (FIM): 6 Gait (FIM): 5 Gait Distance Comment: 200' Gait Level of Assist: 5 Gait Assistive Device: FWW PT Jail Goals Carton Stapler Goals PT Jail Goals Time Frame: Mar 31, 2019 Transfers (B,C,W/C) (FIM): 6 Sit to Lying (QC): 6 Lying-Sitting on Side/Bed(QC): 6 Sit to Stand (QC): 6 Rollin Roll Left to Right (QC): 6 Chair/Jor-yc-Chros Xfer(QC): 6 Car Transfer (QC): 6 Gait (FIM): 6 Distance: 300' Walk 10 feet (QC): 6 Walk 10ft-Uneven Surface(QC): 6 Walk 50ft with 2 Turns (QC): 6 Walk 150 ft (QC): 6 Gait Level of Assist: 6 Gait Assistive Device: FWW Stairs (FIM): 4 # of Steps: 12 1 Step (curb) (QC): 4 4 Steps (QC): 4 12 Steps (QC): 4 Stairs Level Of Assist: 4 PT Plan Problem List Problem List: Activity Tolerance, Functional Strength Treatment/Plan Treatment Plan: Continue Plan of Care Treatment Plan: Bed Mobility, Education, Functional Activity [place], Functional Strength, Group Therapy, Gait, Safety, Therapeutic Exercise, Transfers Treatment Duration: Mar 31, 2019 Frequency: At least 5 of 7 days/Wk (IRF) Estimated Hrs Per Day: 1.5 hours per day Patient and/or Family Agrees t: Yes Safety Risks/Education Patient Education: Gait Training, Transfer Techniques, Steps, Correct Positioning, Safety Issues Teaching Recipient: Patient Teaching Methods: Discussion Response to Teaching: Verbalize Understanding Time/GCodes Time In: 1000 Time Out: 1045 Total Billed Treatment Time: 45 Total Billed Treatment 1, GT (15m), FA (20m) & EX (10m) G Codes Necessary: CURT Malagon CAMPUS ADMINISTRATOR Mar 15, 2019 12:11
--- NOTE | 2019-03-15 14:00 | NUR ---
3 SUTURES REMOVED FROM RIGHT OCCIPITAL AREA. DRIED BLOOD AT SITE. WARM WASHCLOTH HELD TO HEAD.
--- NOTE | 2019-03-15 14:07 | Physical Therapy Daily Note ---
PT Daily Note-Current Subjective Pt sitting in recliner upon arrival. Pt agrees to PT although reports feeling tired and tightness in B shoulders. Pain Numeric Pain Scale: 5-Moderate Pain Location: Right, Left Location Body Site: Shoulder Pain Description: Ache, Tightness Mental Status Patient Orientation: Person, Place, Time, Situation Transfers Therapy Code Descriptions/Definitions Functional [place] Measure: 0=Not Assessed/NA 4=Minimal Assistance 1=Total Assistance 5=Supervision or Setup 2=Maximal Assistance 6=Modified [place] 3=Moderate Assistance 7=Complete [place] Therapy Quality Codes: 6 Independent with activity with or without an assistive device 5 Patient requires set up or clean up by helper. Patient completes activity by themselves 4 Supervision or touching assist (CGA). [place] provide cues , steadying assist 3 The helper provides less than half the effort to complete the activity 2 The helper provides more than half the effort to complete the activity 1 Dependent. The helper does all the effort to complete an activity 7 Patient refused to complete or attempt activity 9 The patient did not perform the activity before the current illness or injury 88 Not attempted due to Medical conditions or safety concerns Weight Bearing Full Weight Bearing Full Weight Bearing Treatments COMMERCIAL FINANCE MANAGER goes over pt education items including HEP (although pt declines wanting to take a copy home), techniques to improve balance & decrease falls as well as pt wanting to see Sealer Sander to go discuss proper diet for home & Meals on Wheels. Nurse has made request. Pt resting in recliner at end of tx with all needs met, call light next to pt. Assessment Current Status: Good Progress Pt continues to improve cognitively and will continue to improve at home. PT Short Term Goals Short Term Goals Time Frame: Mar 17, 2019 Transfers (B,C,W/C) (FIM): 6 Gait (FIM): 5 Gait Distance Comment: 200' Gait Level of Assist: 5 Gait Assistive Device: FWW PT Alf Goals Item Processor Goals PT Item Processor Goals Time Frame: Mar 31, 2019 Transfers (B,C,W/C) (FIM): 6 Sit to Lying (QC): 6 Lying-Sitting on Side/Bed(QC): 6 Sit to Stand (QC): 6 Rollin Roll Left to Right (QC): 6 Chair/Rco-eo-Jfmik Xfer(QC): 6 Car Transfer (QC): 6 Gait (FIM): 6 Distance: 300' Walk 10 feet (QC): 6 Walk 10ft-Uneven Surface(QC): 6 Walk 50ft with 2 Turns (QC): 6 Walk 150 ft (QC): 6 Gait Level of Assist: 6 Gait Assistive Device: FWW Stairs (FIM): 4 # of Steps: 12 1 Step (curb) (QC): 4 4 Steps (QC): 4 12 Steps (QC): 4 Stairs Level Of Assist: 4 PT Plan Problem List Problem List: Activity Tolerance, Functional Strength Treatment/Plan Treatment Plan: Continue Plan of Care Treatment Plan: Bed Mobility, Education, Functional Activity [place], Functional Strength, Group Therapy, Gait, Safety, Therapeutic Exercise, Transfers Treatment Duration: Mar 31, 2019 Frequency: At least 5 of 7 days/Wk (IRF) Estimated Hrs Per Day: 1.5 hours per day Patient and/or Family Agrees t: Yes Safety Risks/Education Patient Education: Gait Training, Transfer Techniques, Correct Positioning, Safety Issues Teaching Recipient: Patient Teaching Methods: Discussion Response to Teaching: Verbalize Understanding Time/GCodes Time In: 1330 Time Out: 1400 Total Billed Treatment Time: 30 Total Billed Treatment 1, FA x2 (30m) G Codes Necessary: CURT Malagon COMMERCIAL FINANCE MANAGER Mar 15, 2019 14:07
[2019-03-15 17:07] VITALS: BP 142/74
[2019-03-15] MEDS: POLYETHYLENE GLYCOL 17 GM (MIRALAX) PACK PO PRN (17:20)
[2019-03-16] MEDS: KCL 10 MEQ TAB (MICRO K) PO SCH (05:28)
[2019-03-16 05:43] VITALS: BP 199/88
[2019-03-16 06:22] VITALS: BP 176/79
[2019-03-16 08:00] VITALS: BP 138/71
--- NOTE | 2019-03-16 08:00 | NUR ---
BP 138/71 THIS AM. STATES STILL MILD HEAVINESS IN CHEST, BUT "GETTING BETTER". STATES CLARITIN HELPED NASAL DRIP. FEELS READY TO GO HOME TODAY. NO ISSUES.
[2019-03-16] MEDS: HYDROCHLOROTHIAZIDE 25 MG (HCTZ) TAB PO SCH (08:29)
[2019-03-16] MEDS: VITAMIN D3 1,000 UNITS (CHOLECALCIFEROL) TABLET PO SCH (08:29)
[2019-03-16] MEDS: lisINopril 20 MG (PRINIVIL) TABLET PO SCH (08:29)
[2019-03-16] MEDS: SERTRALINE 100 MG (ZOLOFT) TAB PO SCH (08:29)
[2019-03-16] MEDS ORDERED: LORATADINE (CLARITIN) 10 MG TAB PO SCH (09:00)
[2019-03-16] MEDS ORDERED: POLY17PO31 PO (09:05)
[2019-03-16] MEDS ORDERED: LORA10TA7 PO (09:05)
--- NOTE | 2019-03-16 09:08 | D/C HH Face to Face Order ---
D/C Face to Face Orders Instructions for Patient [facility], Patient Instructions/FollowUp: Dr Keith in 1 week Physician to follow Patient: Dr Nitza Keith Discharge Diet for Home: Low Sodium Diet Patient Problems: Fall with LOC Debility HTN labile Patient Data-Allergies,Ht & Wt Patient Allergies: Coded Allergies: amlodipine besylate (Verified Allergy, Unknown, 09/15/11) atorvastatin (Unverified Allergy, Unknown, 03/11/19) morphine (Unverified Allergy, Unknown, 03/11/19) Height (Feet): 5 Height (Inches): 7.00 Weight (Pounds): 113 Weight (Ounces): 0.9 Home Health Need/Face to Face Date of Face to Face: Mar 16, 2019 Clinical Findings: Generalized weakness and fatigue, Instability, Muscle weakness, Pain with ambulation, Unsteady gait I have seen Pt [id number]: Yes Discharged To: Home Diagnosis/Conditions: Fall with LOC Debility HTN labile Patient is Homebound due to: Renay fall risk due to instabilty, Muscle weakness, Pain w/ambulation, Shortness of breath/distress Homebound Status Due to the above stated illness, injury or surgical procedure (medical condition or diagnosis) and associated clinical findings, the patient is homebound because of his/her inability to leave home except with aid of a supportive device and/or person AND leaving the home requires a considerable and taxing effort or is medically contraindicated. Pt req the following assistanc: Walker Home Health Nursing Orders Home Health Services Order: Bin Tripper Operator-Evaluate & Treat, Physical Therapy-Evaluate & Treat, Other (bath aide) Certify Stmt I certify that this patient is under my care and that I, a nurse practitioner or a physician; a actuarial assistant working with me, had a face to face encounter that - meets the physician face to face encounter requirements with this patient as dated. NITZA KEITH DO Mar 16, 2019 09:08
--- NOTE | 2019-03-16 09:08 | Discharge Summary ---
Diagnosis/Chief Complaint Date of Admission Mar 10, 2019 at 10:19 Date of Discharge Discharge Date: Mar 16, 2019 Discharge Diagnosis Assessment: Fall with acute LOC Scalp laceration Anemia from acute blood loss HTN labile and malignant type CRI Hypokalemia HLP ANA MARIA Asthma PND ordered Claritin Plan: Home meds IRF protocol HTN monitoring Fall prevention Miralax DC home at [place] with additional family support and alarm system scheduled for tomorrow (1) Loss of consciousness (2) Scoliosis (3) COPD (chronic obstructive pulmonary disease) (4) Hypokalemia (5) Hyperlipidemia (6) Narcotic dependence (7) Renal insufficiency (8) Knee pain (9) Diverticula of colon (10) Hypertension (11) Asthma (12) B12 deficiency (13) History of GI bleed (14) History of rheumatic fever as a child (15) ANA MARIA on CPAP (16) Anemia due to acute blood loss (17) Fall (18) Scalp laceration Discharge Summary Discharge Physical Examination Allergies: Coded Allergies: amlodipine besylate (Verified Allergy, Unknown, 09/15/11) atorvastatin (Unverified Allergy, Unknown, 03/11/19) morphine (Unverified Allergy, Unknown, 03/11/19) Vitals & I&Os Vital Signs Date Time Temp Pulse Resp B/P (MAP) Pulse Ox O2 Delivery O2 Flow Rate FiO2 03/16/19 13:50 73 18 138/71 95 Room Air 03/16/19 05:43 99.0 General Appearance: Alert, Oriented X3, Cooperative Respiratory: Clear to Auscultation, Normal Air Movement Neuro: Normal Gait, Normal Speech, Strength at 5/5 X4 Ext Psych/Mental Status: Mental Status NL, Mood NL Hospital Course Was the Problem List Reviewed?: Yes Pt had an uneventful hospital course for 6 days in inpatient rehab after a fall with a scalp laceration with moderate blood loss and loss of consciousness. She was placed in observation at [facility] and then transferred over and participating in all therapies. Pt remains stable, Maintained on a low sodium diet which improved her labile HTN which she has had on a chronic basis for the past twenty years. Claritin was given for clear rhinorrhea which helped tremendously and overall dramatic improvement back to a prior level of functioning with the use of a walker but did require [facility] home health with PT and OT and bath aide and no other medications were changed. Dyspnea on exertion improved and there as no evidence of Hypoxia or need for home oxygen at AL, and no pain medication was changed which is refilled under a narcotic agreement from my office. Labs (last 24 hrs) Laboratory Tests 03/11/19 04:55: White Blood Count 6.2, Red Blood Count 3.20L, Hemoglobin 10.2L, Hematocrit 31L, Mean Corpuscular Volume 98, Mean Corpuscular Hemoglobin 32, Mean Corpuscular Hemoglobin Concent 33, Red Cell Distribution Width 13.5, Platelet Count 155, Mean Platelet Volume 10.8H, Neutrophils (%) (Auto) 54, Lymphocytes (%) (Auto) 29, Monocytes (%) (Auto) 13H, Eosinophils (%) (Auto) 3, Basophils (%) (Auto) 0, Neutrophils # (Auto) 3.4, Lymphocytes # (Auto) 1.8, Monocytes # (Auto) 0.8, Eosinophils # (Auto) 0.2, Basophils # (Auto) 0.0, Sodium Level 140, Potassium L evel 3.3L, Chloride Level 100, Carbon Dioxide Level 28, Anion Gap 12, Blood Urea Nitrogen 22H, Creatinine 0.98, Estimat Glomerular Filtration Rate 54, BUN/Creatinine Ratio 22, Glucose Level 87, Calcium Level 9.3, Corrected Calcium 9.9, Iron Level 41, Total Bilirubin 0.4, Aspartate Amino Transf (AST/SGOT) 29, Alanine Aminotransferase (ALT/SGPT) 24, Alkaline Phosphatase 109, Total Protein 5.8L, Albumin 3.3, Thyroid Stimulating Hormone (TSH) 2.27 03/15/19 06:08: White Blood Count 8.7, Red Blood Count 3.92L, Hemoglobin 12.4#, Hematocrit 39, Mean Corpuscular Volume 99, Mean Corpuscular Hemoglobin 32, Mean Corpuscular Hemoglobin Concent 32, Red Cell Distribution Width 13.6, Platelet Count 246, Mean Platelet Volume 10.3, Neutrophils (%) (Auto) 40L, Lymphocytes (%) (Auto) 46H, Monocytes (%) (Auto) 11, Eosinophils (%) (Auto) 3, Basophils (%) (Auto) 1, Neutrophils # (Auto) 3.5, Lymphocytes # (Auto) 4.0, Monocytes # (Auto) 1.0, Eosinophils # (Auto) 0.2, Basophils # (Auto) 0.1, Sodium Level 139, Potassium Level 3.6, Chloride Level 100, Carbon Dioxide Level 28, Anion Gap 11, Blood Urea Nitrogen 18, Creatinine 1.16, Estimat Glomerular Filtration Rate 44, BUN/Creatinine Ratio 16, Glucose Level 99, Calcium Level 10.4H, Corrected Calcium 10.3H, Total Bilirubin 0.5, Aspartate Amino Transf (AST/SGOT) 32, Alanine Aminotransferase (ALT/SGPT) 22, Alkaline Phosphatase 132, Total Protein 7.2, Albumin 4.1 Pending Labs Laboratory Tests 03/11/19 04:55: White Blood Count 6.2, Red Blood Count 3.20, Hemoglobin 10.2, Hematocrit 31, Mean Corpuscular Volume 98, Mean Corpuscular Hemoglobin 32, Mean Corpuscular Hemoglobin Concent 33, Red Cell Distribution Width 13.5, Platelet Count 155, Mean Platelet Volume 10.8, Neutrophils (%) (Auto) 54, Lymphocytes (%) (Auto) 29, Monocytes (%) (Auto) 13, Eosinophils (%) (Auto) 3, Basophils (%) (Auto) 0, Neutrophils # (Auto) 3.4, Lymphocytes # (Auto) 1.8, Monocytes # (Auto) 0.8, Eosinophils # (Auto) 0.2, Basophils # (Auto) 0.0, Sodium Level 140, Potassium Level 3.3, Chloride Level 100, Carbon Dioxide Level 28, Anion Gap 12, Blood Urea Nitrogen 22, Creatinine 0.98, Estimat Glomerular Filtration Rate 54, BUN/Creatinine Ratio 22, Glucose Level 87, Calcium Level 9.3, Corrected Calcium 9.9, Iron Level 41, Total Bilirubin 0.4, Aspartate Amino Transf (AST/SGOT) 29, Alanine Aminotransferase (ALT/SGPT) 24, Alkaline Phosphatase 109, Total Protein 5.8, Albumin 3.3, Thyroid Stimulating Hormone (TSH) 2.27 03/15/19 06:08: White Blood Count 8.7, Red Blood Count 3.92, Hemoglobin 12.4, Hematocrit 39, Mean Corpuscular Volume 99, Mean Corpuscular Hemoglobin 32, Mean Corpuscular Hemoglobin Concent 32, Red Cell Distribution Width 13.6, Platelet Count 246, Mean Platelet Volume 10.3, Neutrophils (%) (Auto) 40, Lymphocytes (%) (Auto) 46, Monocytes (%) (Auto) 11, Eosinophils (%) (Auto) 3, Basophils (%) (Auto) 1, Neutrophils # (Auto) 3.5, Lymphocytes # (Auto) 4.0, Monocytes # (Auto) 1.0, Eosinophils # (Auto) 0.2, Basophils # (Auto) 0.1, Sodium Level 139, Potassium Level 3.6, Chloride Level 100, Carbon Dioxide Level 28, Anion Gap 11, Blood Urea Nitrogen 18, Creatinine 1.16, Estimat Glomerular Filtration Rate 44, BUN/Creatinine Ratio 16, Glucose Level 99, Calcium Level 10.4, Corrected Calcium 10.3, Total Bilirubin 0.5, Aspartate Amino Transf (AST/SGOT) 32, Alanine Aminotransferase (ALT/SGPT) 22, Alkaline Phosphatase 132, Total Protein 7.2, Albumin 4.1 Discharge Home Medications: Active Scripts Active Polyethylene Glycol 3350 17 Gm Powd.pack 17 Gm PO DAILY 365 Days Loratadine 10 Mg Tablet 10 Mg PO DAILY Reported Oxycodone HCl 10 Mg Tablet 10-20 Mg PO Q6H PRN Cyanocobalamin Injection (Cyanocobalamin) 1,000 Mcg/Ml Inj 2,000 Mcg INJ MO Sertraline HCl 100 Mg Tablet 50 Mg PO BID TAKES 1/2 (100MG) TABLET Lisinopril-Hctz 20-25 mg Tab (Lisinopril/Hydrochlorothiazide) 1 Each Tablet 1 Tab PO BID Vitamin D3 (Cholecalciferol (Vitamin D3)) 1,000 Unit Capsule 1,000 Unit PO DAILY Instructions to patient/family Please see electronic discharge instructions given to patient. Diagnosis/Problems Diagnosis/Problems (1) Loss of consciousness (2) Scoliosis (3) COPD (chronic obstructive pulmonary disease) (4) Hypokalemia (5) Hyperlipidemia (6) Narcotic dependence (7) Renal insufficiency (8) Knee pain (9) Diverticula of colon (10) Hypertension (11) Asthma (12) B12 deficiency (13) History of GI bleed (14) History of rheumatic fever as a child (15) ANA MARIA on CPAP (16) Anemia due to acute blood loss (17) Fall (18) Scalp laceration Clinical Quality Measures DVT/VTE Risk/Contraindication: Risk Factor Score Per Nursin RFS Level Per Nursing on Admit: 4+=Very High LIV STONE DO Mar 16, 2019 09:08
--- NOTE | 2019-03-16 09:12 | Therapy Team Discharge Summary ---
Therapy Discharge Summary Discharge Recommendations Date of Discharge Therapy D/C Recommendations: Home w/ Family Support, Occupational Therapy Home Care Occupational Therapy Decreased Activ Tolerance Speech-Language Pathology The patient was admitted to the ARU due to injury sustained from a fall. She received skilled therapy for strengthening and safety prior to returning home. 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 Patient has met her ST goals. She is being discharged from skilled rehab and ST today. PT Longterm Goals Longterm Goals PT Longterm Goals Time Frame: Mar 31, 2019 Transfers (B,C,W/C) (FIM): 6 Roll Left to Right (QC): 6 Sit to Lying (QC): 6 Lying-Sitting on Side/Bed(QC): 6 Sit to Stand (QC): 6 Chair/Jws-aj-Mmjhq Xfer(QC): 6 Car Transfer (QC): 6 Gait (FIM): 6 Distance: 300' Walk 10 feet (QC): 6 Walk 10ft-Uneven Surface(QC): 6 Walk 50ft with 2 Turns (QC): 6 Walk 150 ft (QC): 6 Gait Level of Assist: 6 Gait Assistive Device: FWW Stairs (FIM): 4 # of Steps: 12 1 Step (curb) (QC): 4 4 Steps (QC): 4 12 Steps (QC): 4 Stairs Level Of Assist: 4 OT Culture Room Worker Goals Longterm Goals Time Frame: Mar 24, 2019 Eating (FIM): 6 (met) Eating (QC): 6 (6-MET) Oral Hygiene (QC): 6 (6-MET) Grooming(FIM): 6 (met 03/15/19) Bathing(FIM): 5 (exceeded) Shower/Bathe Self (QC): 5 (6-exceeded) Upper Body Dressing(FIM): 6 (met 03/15/19) Upper Body Dressing (QC): 6 (6-MET) Lower Body Dressing(FIM): 6 (met 03/15/19) Lower Body Dressing (QC): 6 (6-MET) On/Off Footwear (QC): 6 (6-MET) Toileting(FIM): 6 (met 03/15/19) Toileting Hygiene (QC): 6 (6-MET) Transfers (B,C,W/C) (FIM): 6 Toilet/Commode Transfer(FIM): 6 (met 03/15/19) Toilet/Commode Transfer (QC): 6 (6-MET) Shower Transfer(FIM): 5 (exceeded) 1=Demonstrate adherence to instructed precautions during ADL tasks. 2=Patient will verbalize/demonstrate understanding of assistive d evices/modifications for ADL. 3=Patient will improve strength/tolerance for activity to enable patient to perform ADL's. Speech Longterm Goals Culture Room Worker Goals Patient will improve problem solving and memory skills necessary for daily living tasks with minimal assist. Met LUISITO JDUGE Mar 16, 2019 09:12
--- NOTE | 2019-03-16 09:43 | NUR ---
PHOTO GRAPHICS LIBRARIAN met with patient to review any last minute concerns regarding discharge plans today. Other than an episode of high blood pressure this am, which she reports as normal, she expresses no concerns or hesitations regarding home discharge. Patient will benefit from [facility] services for a short period of time and prefers to utilize [facility]. Dr. Keith has ordered PT/OT/Bath aide services. PHOTO GRAPHICS LIBRARIAN has sent referral. Patient's son, Tariq will provide transport home today around 130p. Please see discharge summary for further information.
--- NOTE | 2019-03-16 10:21 | Therapy Team Discharge Summary ---
Therapy Discharge Summary Discharge Recommendations Date of Discharge 03/15/2019 Therapy D/C Recommendations: Home w/ Family Support, Occupational Therapy Home Care Physical Therapy This patient was admitted to ARU post acute hospital stay due to a fall that resulted in a concussion with loss of consciousness. Prior to the fall, she was living at home alone at a mod indep level. Upon admission to this unit, she was min assist with transfers, gait and stairs. Treatment focused on functional strength and balance training as well as safety education to improve her transfers and gait. She has made excellent progress and has achieved all goals. She is mod indep with transfers, gait and stairs. Recommend follow up care as pt desires for continued functional strengthening, safety and independence in her home. Will DC from ARU at this time. Occupational Therapy Decreased Activ Tolerance PT Trailer Chief Goals Trailer Chief Goals PT Trailer Chief Goals Time Frame: Mar 31, 2019 Transfers (B,C,W/C) (FIM): 6 (met) Roll Left to Right (QC): 6 Sit to Lying (QC): 6 Lying-Sitting on Side/Bed(QC): 6 Sit to Stand (QC): 6 Chair/Xyg-dv-Kjqgs Xfer(QC): 6 Car Transfer (QC): 6 Gait (FIM): 6 (met) Distance: 300' Walk 10 feet (QC): 6 Walk 10ft-Uneven Surface(QC): 6 Walk 50ft with 2 Turns (QC): 6 Walk 150 ft (QC): 6 Gait Level of Assist: 6 Gait Assistive Device: FWW Stairs (FIM): 4 (exceeded; scored a 5) # of Steps: 12 1 Step (curb) (QC): 4 4 Steps (QC): 4 12 Steps (QC): 4 Stairs Level Of Assist: 4 OT Trailer Chief Goals Usp Goals Time Frame: Mar 24, 2019 Eating (FIM): 6 (met) Eating (QC): 6 (6-MET) Oral Hygiene (QC): 6 (6-MET) Grooming(FIM): 6 (met 03/15/19) Bathing(FIM): 5 (exceeded) Shower/Bathe Self (QC): 5 (6-exceeded) Upper Body Dressing(FIM): 6 (met 03/15/19) Upper Body Dressing (QC): 6 (6-MET) Lower Body Dressing(FIM): 6 (met 03/15/19) Lower Body Dressing (QC): 6 (6-MET) On/Off Footwear (QC): 6 (6-MET) Toileting(FIM): 6 (met 03/15/19) Toileting Hygiene (QC): 6 (6-MET) Transfers (B,C,W/C) (FIM): 6 Toilet/Commode Transfer(FIM): 6 (met 03/15/19) Toilet/Commode Transfer (QC): 6 (6-MET) Shower Transfer(FIM): 5 (exceeded) 1=Demonstrate adherence to instructed precautions during ADL tasks. 2=Patient will verbalize/demonstrate understanding of assistive devices/modifications for ADL. 3=Patient will improve strength/tolerance for activity to enable patient to perform ADL's. Speech Trailer Chief Goals Usp Goals Patient will improve problem solving and memory skills necessary for daily living tasks with minimal assist. Met CHERYL SULLIVAN PT Mar 16, 2019 10:21
[2019-03-16 13:50] VITALS: BP 138/71
--- NOTE | 2019-03-17 11:56 | Therapy Team Discharge Summary ---
Therapy Discharge Summary Discharge Recommendations Date of Discharge Mar 16, 2019 at 13:40 Therapy D/C Recommendations: Home w/ Family Support, Occupational Therapy Home Care Occupational Therapy Pt. has been seen by occupational therapy to address weakness and independence with basic ADL skills. Pt. has met all goals and discharged at Mod I level. Pt. able to bathe/dress with no LOB and ambulate with Mod I using walker. Pt. discharged home with family support and with recommendation of home health OT as needed for safety within the home. Decreased Activ Tolerance PT Mcc Goals Field Cashier Goals PT Mcc Goals Time Frame: Mar 31, 2019 Transfers (B,C,W/C) (FIM): 6 (met) Roll Left to Right (QC): 6 Sit to Lying (QC): 6 Lying-Sitting on Side/Bed(QC): 6 Sit to Stand (QC): 6 Chair/Xol-dw-Zecoe Xfer(QC): 6 Car Transfer (QC): 6 Gait (FIM): 6 (met) Distance: 300' Walk 10 feet (QC): 6 Walk 10ft-Uneven Surface(QC): 6 Walk 50ft with 2 Turns (QC): 6 Walk 150 ft (QC): 6 Gait Level of Assist: 6 Gait Assistive Device: FWW Stairs (FIM): 4 (exceeded; scored a 5) # of Steps: 12 1 Step (curb) (QC): 4 4 Steps (QC): 4 12 Steps (QC): 4 Stairs Level Of Assist: 4 OT Field Cashier Goals Field Cashier Goals Time Frame: Mar 24, 2019 Eating (FIM): 6 (met) Eating (QC): 6 (6-MET) Oral Hygiene (QC): 6 (6-MET) Grooming(FIM): 6 (met 03/15/19) Bathing(FIM): 5 (exceeded) Shower/Bathe Self (QC): 5 (6-exceeded) Upper Body Dressing(FIM): 6 (met 03/15/19) Upper Body Dressing (QC): 6 (6-MET) Lower Body Dressing(FIM): 6 (met 03/15/19) Lower Body Dressing (QC): 6 (6-MET) On/Off Footwear (QC): 6 (6-MET) Toileting(FIM): 6 (met 03/15/19) Toileting Hygiene (QC): 6 (6-MET) Transfers (B,C,W/C) (FIM): 6 Toilet/Commode Transfer(FIM): 6 (met 03/15/19) Toilet/Commode Transfer (QC): 6 (6-MET) Shower Transfer(FIM): 5 (exceeded) 1=Demonstrate adherence to instructed precautions during ADL tasks. 2=Patient will verbalize/demonstrate understanding of assistive devices/modifications for ADL. 3=Patient will improve strength/tolerance for activity to enable patient to perform ADL's. Speech Field Cashier Goals Mcc Goals Patient will improve problem solving and memory skills necessary for daily living tasks with minimal assist. Met WILFREDO ORTEGA OT Mar 17, 2019 11:56
--- NOTE | 2019-03-21 14:27 | Physician Query Clarification ---
PQ-Further Specificity Admission/Discharge Admission Date: Mar 10, 2019 at 10:19 Discharge Date: Mar 16, 2019 at 13:40 The medical record reflects the following clinical scenario: History/Risk Factors: Scalp laceration w/LOC d/t fall Clinical Findings: scalp laceration, dizzy, malaise, weakness Treatment: repaired scalp laceration Question: Can you further specify the loss of consciousness per the clinical indicators above? Please document a response in the Progress Notes or Discharge Summary. 1. Concussion (specify the duration of the LOC) 2. Scalp laceration with LOC without concussion 3. Other, with explanation of the clinical findings. 4. Clinically undetermined, no explanation for the clinical findings. PHYSICIAN RESPONSE Can you specify per above: 1 Please remember a lack of response to the above will prompt a phone page by [facility]/Coding staff. In responding to this query, please exercise your independent professional judgment. The purpose of this communication is to more accurately reflect the complexity of your patients condition. The fact that a question is asked does not imply that any particular answer is desired or expected. Thank you for your timely response to this clarification. Requestors name: Tyler THIS PHYSICIAN QUERY FORM IS A PERMANENT PART OF THE MEDICAL RECORD T[place]ER MO Mar 21, 2019 14:27 LIV STONE DO Mar 21, 2019 17:36
== END 2019-03-16 13:40 | disposition home health service (06) | DRG 949 ==
PROVIDERS: ADMIT Internal Medicine; ATTEND Internal Medicine
DX: S06.0X9D Concussion with loss of consciousness of unspecified duration, subsequent encounter (principal); S01.01XD Laceration without foreign body of scalp, subsequent encounter; I12.9 Hypertensive chronic kidney disease with stage 1 through stage 4 chronic kidney disease, or unspecified chronic kidney disease; N18.9 Chronic kidney disease, unspecified; D62 Acute posthemorrhagic anemia; M41.9 Scoliosis, unspecified; I38 Endocarditis, valve unspecified; M25.511 Pain in right shoulder; E87.6 Hypokalemia; E78.5 Hyperlipidemia, unspecified; J44.9 Chronic obstructive pulmonary disease, unspecified; G47.30 Sleep apnea, unspecified; K21.9 Gastro-esophageal reflux disease without esophagitis; K57.90 Diverticulosis of intestine, part unspecified, without perforation or abscess without bleeding; F41.9 Anxiety disorder, unspecified; F32.9 Major depressive disorder, single episode, unspecified; I25.2 Old myocardial infarction; Z87.01 Personal history of pneumonia (recurrent); Z79.891 Long term (current) use of opiate analgesic; W19.XXXD Unspecified fall, subsequent encounter; Y92.009 Unspecified place in unspecified non-institutional (private) residence as the place of occurrence of the external cause
CPT/HCPCS: 36415; 80053; 83540; 84443; 85025; 94760

== ENCOUNTER → 2019-08-03 | Outpatient (CLI) | payer MEDICARE ==
[~2019-08-03] MED LIST changes: +CHOL10007 PO; +CNC1KV INJ; +LORA10TA7 PO; +OXYC10TA7 PO; +POLY17PO31 PO
--- NOTE | 2019-08-03 14:58 | Diagnostic Imaging Report ---
PROCEDURE: US Thyroid. TECHNIQUE: Multiple real-time grayscale images were obtained of the thyroid in various projections. INDICATION: Right thyroid nodule. COMPARISON: No prior studies are available for comparison. FINDINGS: Right lobe of thyroid measures 4.5 x 2.0 x 1.8 cm and the left lobe measures 4.5 x 1.5 x 1.2 cm. Isthmus is 4 mm in thickness. There is a calcified nodule in the right lobe of the thyroid measuring 1.5 x 1.1 x 0.8 cm. This appears similar to limited images from fine-needle aspiration of this lesion performed on 02/03/2019. Tiny cyst in left lobe of the thyroid is noted measuring 2-3 mm. No other masses detected IMPRESSION: Calcified shadowing mass in right lobe of the thyroid, as described. Correlation with prior outside imaging is recommended to confirm stability. Dictated by: Dictated on workstation # [id number]
== END ==
LOC: RAD 11:40
PROVIDERS: ATTEND Otolaryngology Otolaryngology/Facial Plastic Surgery
DX: E04.1 Nontoxic single thyroid nodule (principal)
CPT/HCPCS: 76536

== ENCOUNTER → 2019-11-08 | Outpatient (CLI) | payer OTHER, MEDICARE ==
[~2019-11-08] MED LIST changes: +LISI1TAB26 PO
== END ==
LOC: LABNPT 16:13
PROVIDERS: ATTEND Internal Medicine
DX: Z01.89 Encounter for other specified special examinations (principal)
CPT/HCPCS: 84145